=== PATIENT | male | born 1990 | race Hispanic/Latino ===

== ENCOUNTER 2018-10-18 11:46 | Emergency (ER) | payer SELFPAY ==
--- OUTSIDE RECORDS SUMMARY | 2018-10-18 11:51 | XMS REPORT | Continuity of Care Document ---
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 [facility] HEMATOLOGY WBC 8.5 K/CMM 3.7 - 10.4 09/07 [facility] HEMATOLOGY Monocytes # 0.9 K/CMM 0.0 - 0.8 09/07 [facility] HEMATOLOGY Basophils # 0.1 K/CMM 0.0 - 0.2 09/07 [facility] HEMATOLOGY Microcyte 1+ None Seen 09/07 [facility] *ABN* (09/07/14 2:39 PM) HEMATOLOGY Segs 65.0 % 45.0 - 09/07 75.0 /2013 [facility] HEMATOLOGY Eosinophils 0.3 % 0.0 - 4.0 09/07 [facility] HEMATOLOGY Monocytes 10.2 % 2.0 - 12.0 09/07 [facility] HEMATOLOGY Lymphocytes 23.9 % 20.0 - 09/07 40.0 [facility] HEMATOLOGY Basophils 0.6 % 0.0 - 1.0 09/07 [facility] HEMATOLOGY Segs-Bands # 5.5 K/CMM 1.5 - 8.1 09/07 [facility] HEMATOLOGY Lymphocytes 2.0 K/CMM 1.0 - 5.5 09/07 [facility] Chest Chest 1view NAME: DAVE GRIER 09/07 - - [facility] : 1990 SEX: M Ordering Physician: Sunny Vaz Read by: Sawyer Jacobs MD Dictated Date/time: 09/07/14 15:46 Chest 1view : Sep 07, 2014 03:41:00 PM. Electronically Signed by: Sawyer Jacobs MD 09/07/14 15:46 FINAL REPORT CLINICAL INDICATION: Chest pain / See Clinic Indication Comparison Examination: None. FINDINGS: The portable AP chest radiograph is provided for review. There are mild decreased lung volumes without interstitial opacities, pleural effusions or pneumothorax. The heart size and pulmonary vasculature are normal. The trachea is midline. Mediastinal contour is unremarkable. There are no clinically significant osseous abnormalities noted. IMPRESSION: 1. No acute cardiopulmonary disease. SL: 23 Vital Signs Vital Sign Value Date Comments Source Temperature Oral (F) 98.4 F 06/28/2017 [facility] Heart Rate 82 06/28/2017 [facility] Systolic (mm Hg) 142 06/28/2017 [facility] Diastolic (mm Hg) 79 06/28/2017 [facility] Respitory Rate 20 06/28/2017 [facility] Weight 100 06/28/2017 [facility] Height 172.72 cm 06/28/2017 [facility] BMI Calculated 33.52 06/28/2017 [facility] Respitory Rate 20 06/28/2017 [facility] Heart Rate 89 06/28/2017 [facility] Systolic (mm Hg) 152 06/28/2017 [facility] Diastolic (mm Hg) 90 06/28/2017 [facility] Temperature Oral (F) 98.7 F 06/28/2017 [facility] Heart Rate 96 06/28/2017 [facility] Respitory Rate 24 06/28/2017 [facility] Systolic (mm Hg) 144 06/28/2017 [facility] Diastolic (mm Hg) 82 06/28/2017 [facility] Temperature Oral (F) 99.4 F 06/28/2017 [facility] BMI Calculated 33.52 06/28/2017 [facility] Height 172.72 cm 06/28/2017 [facility] Weight 100 06/28/2017 [facility] Respitory Rate 18 06/21/2017 [facility] Systolic (mm Hg) 159 06/21/2017 [facility] Diastolic (mm Hg) 91 06/21/2017 [facility] Heart Rate 87 06/21/2017 [facility] Temperature Oral (F) 98.7 F 06/21/2017 [facility] Respitory Rate 18 06/21/2017 [facility] Systolic (mm Hg) 165 06/21/2017 [facility] Diastolic (mm Hg) 98 06/21/2017 [facility] Temperature Oral (F) 98.4 F 06/21/2017 [facility] Heart Rate 91 06/21/2017 [facility] Systolic (mm Hg) 165 06/21/2017 [facility] Diastolic (mm Hg) 91 06/21/2017 [facility] Temperature Oral (F) 98.5 F 06/21/2017 [facility] Respitory Rate 20 06/21/2017 [facility] Heart Rate 76 06/21/2017 [facility] Height 172.72 cm 06/19/2017 [facility] BMI Calculated 33.52 06/19/2017 [facility] Weight 100 06/19/2017 [facility] BMI Calculated 33.52 06/18/2017 [facility] Weight 100 06/18/2017 [facility] Height 172.72 cm 06/18/2017 [facility] Weight 100 06/18/2017 [facility] Temperature Oral (F) 98.8 F 09/11/2016 [facility] Heart Rate 76 09/11/2016 [facility] Systolic (mm Hg) 142 09/11/2016 [facility] Diastolic (mm Hg) 87 09/11/2016 [facility] Respitory Rate 18 09/11/2016 [facility] Heart Rate 70 09/11/2016 [facility] Respitory Rate 20 09/11/2016 [facility] Systolic (mm Hg) 154 09/11/2016 [facility] Diastolic (mm Hg) 84 09/11/2016 [facility] Respitory Rate 19 09/11/2016 [facility] Heart Rate 84 09/11/2016 [facility] Systolic (mm Hg) 144 09/11/2016 [facility] Diastolic (mm Hg) 90 09/11/2016 [facility] Weight 106.818 09/11/2016 [facility] Temperature Oral (F) 99.0 F 09/11/2016 [facility] Systolic (mm Hg) 180 07/07/2016 [facility] Diastolic (mm Hg) 99 07/07/2016 [facility] Height 172.72 cm 07/07/2016 [facility] Heart Rate 95 07/07/2016 [facility] Respitory Rate 18 07/07/2016 [facility] Temperature Oral (F) 98.1 F 07/07/2016 [facility] BMI Calculated 35.81 07/07/2016 [facility] Weight 106.818 07/07/2016 [facility] Heart Rate 86 05/25/2016 [facility] Temperature Oral (F) 98.4 F 05/25/2016 [facility] Systolic (mm Hg) 148 05/25/2016 [facility] Diastolic (mm Hg) 92 05/25/2016 [facility] Respitory Rate 16 05/25/2016 [facility] Weight 106.818 05/25/2016 [facility] Temperature Oral (F) 98.6 F 05/25/2016 [facility] Respitory Rate 18 05/25/2016 [facility] Systolic (mm Hg) 140 05/25/2016 [facility] Diastolic (mm Hg) 85 05/25/2016 [facility] Heart Rate 101 05/25/2016 [facility] Systolic (mm Hg) 128 09/07/2014 [facility] Temperature Oral (F) 98.2 F 09/07/2014 [facility] Heart Rate 88 09/07/2014 [facility] Respitory Rate 18 09/07/2014 [facility] Diastolic (mm Hg) 78 09/07/2014 [facility] Height 172.72 cm 09/07/2014 [facility] Weight 91.477 09/07/2014 [facility] BMI Calculated 30.66 09/07/2014 [facility] Diastolic (mm Hg) 94 09/07/2014 [facility] Systolic (mm Hg) 152 09/07/2014 [facility] Respitory Rate 20 09/07/2014 [facility] Heart Rate 94 09/07/2014 [facility] Temperature Oral (F) 98.4 F 09/07/2014 [facility] Encounters Location Location Encounter Encounter Reason Attending ADM DC Status Source Details Type Number For Provider Date Date Visit [facility] Emergency [id number] Christopher 09/07 09/07 [facility] 0 Milind [facility] Emergency [id number] Kandace 05/25 05/25 [facility] 1 Siever /2015 [facility] Emergency [id number] Silvano 07/07 07/07 [facility] 2 [facility] /2015 [facility] Emergency [id number] Yaw Faig 09/11 09/11 [facility] 3 [facility] Inpatient [id number] Lenny 06/18 06/21 [facility] 4 Lambert /2016 [facility] Observation [id number] Rondel 06/28 06/28 Hasmukh 5 Zak /2016 [facility] Procedures Procedure Code Date Perfomer Comments Source Exploration of [id number] [facility] abdomen
--- OUTSIDE RECORDS SUMMARY | 2018-10-18 11:52 | XMS REPORT | Summary of Care ---
:1990 Author Organization [facility] Address [address] [place] [address]- Encounter HQ Sarah(ELVIRA) [id number] Date(s): 09/10/16 - 09/10/[address] [address]- Discharge Diagnosis: Abdominal pain Discharge Diagnosis: GI bleed Discharge Disposition: Home or Self Care Attending Physician: Yaw Holley MD Vital Signs Most recent to oldest 1 2 3 [Reference Range]: Temperature Oral [96.4-99.1 98.8 DegF 99.0 DegF DegF] (09/10/16 10:20 PM) (09/10/16 7:32 PM) Blood Pressure [90-140/60-90 142/87 mmHg 154/84 mmHg 144/90 mmHg mmHg] *HI* *HI* *HI* (09/10/16 10:20 PM) (09/10/16 9:19 PM) (09/10/16 8:08 PM) Respiratory Rate [14-20 BRMIN] 18 BRMIN 20 BRMIN 19 BRMIN (09/10/16 10:20 PM) (09/10/16 9:19 PM) (09/10/16 8:08 PM) Peripheral Pulse Rate [60-100 76 bpm 70 bpm 84 bpm bpm] (09/10/16 10:20 PM) (09/10/16 9:19 PM) (09/10/16 8:08 PM) Weight 106.818 kg (09/10/16 7:32 PM) Problem List Condition Effective Dates Status Health Status Informant Anxiety(Confirmed) Resolved Ulcerative colitis(Confirmed) Resolved Allergies, Adverse Reactions, Alerts Substance Reaction Severity Status NKDA Active Medications Bentyl 20 mg oral tablet 20 mg=1 tab, PO, QID-Before Meals, # 28 tab, 0 Refill(s) Start Date: 09/10/16 Stop Date: 09/17/16 Status: Orderedmorphine Sulfate 8 mg, Route: IVP, ONCE, Dosing Weight 106.818, kg, Priority: STAT, Start date: 09/10/16 22:14:00 [employer], Stop date: 09/10/16 22:14:00 [employer] Start Date: 09/10/16 Stop Date: 09/10/16 Status: Completedmorphine Sulfate 4 mg, 1 mL, Route: IVP, Drug form: INJ, ONCE, Dosing Weight 106.818, kg, Priority: STAT, Start date:09/10/16 19:52:00 [employer], Stop date: 09/10/16 19:52:00 [employer] Notes: (Same as:MORPhine Sulfate) Start Date: 09/10/16 Stop Date: 09/10/16 Status: Completedondansetron 4 mg, 2 mL, Route: IVP, Drug form: INJ, ONCE, Dosing Weight 106.818, kg, Priority: STAT, Start date:09/10/16 19:52:00 [employer], Stop date: 09/10/16 19:52:00 [employer] Notes: (Same as: Alda) MEDICATION WASTE Product Size: 4 mgProduct Wasted: ___ mg Start Date: 09/10/16 Stop Date: 09/10/16 Status: CompletedSaline Flush 0.9% 10 mL, Route: IVP, Drug Form: INJ, Dosing Weight 106.818, kg, PRN, PRN Line Flush, Start date: 09/10/16 19:52:00 [employer], Duration: 30 day, Stop date: 10/10/16 19:51:00 [employer] Notes: (Same as: BD Posiflush) Start Date: 09/10/16 Stop Date: 09/10/16 Status: DiscontinuedSodium Chloride 0.9% (Bolus) IV 1,000 mL, 2,000 ml/hr, Infuse Over: 30 minutes, Route: IV, 1,000, Drug form: INJ , ONCE, Priority: STAT, Dosing Weight 106.818 kg, Start date: 09/10/16 19:52:00 [employer], Duration: 1 doses or times, Stop date: 09/10/16 19:52:00 [employer] Start Date: 09/10/16 Stop Date: 09/10/16 Status: Completedtramadol 50 mg oral tablet 50 mg=1 tab, PO, Q6H, PRN Pain, X 10 day, # 40 tab, 0 Refill(s) Start Date: 09/10/16 Stop Date: 09/20/16 Status: OrderedZofran ODT 4 mg oral tablet, disintegrating 4 mg=1 tab, PO, BID, PRN Nausea and Vomiting, Dissolve tab under tongue, X 5 day , # 10 tab, 0 Refill(s) Start Date: 09/10/16 Stop Date: 09/15/16 Status: Ordered Results ELECTROLYTES Most recent to oldest [Reference Range]: 1 Sodium Lvl [135-145 mEq/L] 142 mEq/L (09/10/16 8:48 PM) Potassium Lvl [3.5-5.1 mEq/L] 3.9 mEq/L (09/10/16 8:48 PM) Chloride Lvl [95-109 mEq/L] 108 mEq/L (09/10/16 8:48 PM) CO2 [24-32 mEq/L] 29 mEq/L (09/10/16 8:48 PM) AGAP [10.0-20.0 mEq/L] 8.9 mEq/L *LOW* (09/10/16 8:48 PM) CHEM PANEL Most recent to oldest [Reference Range]: 1 Creatinine Lvl [0.50-1.40 mg/dL] 0.85 mg/dL (09/10/16 8:48 PM) eGFR 120 mL/min/1.73m2 1 *NA* (09/10/16 8:48 PM) BUN [7-22 mg/dL] 9 mg/dL (09/10/16 8:48 PM) B/C Ratio [6-25] 11 (09/10/16 8:48 PM) Glucose Lvl [70-99 mg/dL] 79 mg/dL (09/10/16 8:48 PM) Total Protein [6.4-8.4 g/dL] 6.7 g/dL (09/10/16 8:48 PM) Albumin Lvl [3.5-5.0 g/dL] 3.6 g/dL (09/10/16 8:48 PM) Globulin [2.7-4.2 g/dL] 3.1 g/dL (09/10/16 8:48 PM) A/G Ratio [0.7-1.6] 1.2 (09/10/16 8:48 PM) Calcium Lvl [8.5-10.5 mg/dL] 8.2 mg/dL *LOW* (09/10/16 8:48 PM) ALT [0-65 unit/L] 26 unit/L (09/10/16 8:48 PM) AST [0-37 unit/L] 12 unit/L (09/10/16 8:48 PM) Alk Phos [39-136 unit/L] 75 unit/L (09/10/16 8:48 PM) Bili Total [0.2-1.3 mg/dL] 0.2 mg/dL (09/10/16 8:48 PM) Amylase Lvl [25-115 unit/L] 34 unit/L (09/10/16 8:48 PM) Lipase Lvl [73-393 unit/L] 50 unit/L *LOW* (09/10/16 8:48 PM) 1Result Comment: The eGFR is calculated using the CKD-EPI formula. In most young , healthy individualsthe eGFR will be >90 mL/min/1.73m2. The eGFR declines with age. An eGFR of 60-89 may be normal in some populations, particularly the elderly, for whom the CKD-EPI formula has not been extensively validated. Use of the eGFR is not recommended in the following populations: Individuals with unstable creatinine concentrations, including patients and those with serious co-morbid conditions. Patients with extremes in muscle mass or diet. The data above are obtained from the National Kid[employer] Education Program ( NKDEP) which additionally recommends that when the eGFR is used in patients with extremes of body mass index for purposesof drug dosing, the eGFR should be multiplied by the estimated BMI.HEMATOLOGY Most recent to oldest [Reference Range]: 1 WBC [3.7-10.4 K/CMM] 13.1 K/CMM *HI* (09/10/16 8:07 PM) RBC [4.70-6.10 M/CMM] 4.92 M/CMM (09/10/16 8:07 PM) Hgb [14.0-18.0 g/dL] 13.5 g/dL *LOW* (09/10/16 8:07 PM) Hct [42.0-54.0 %] 41.1 % *LOW* (09/10/16 8:07 PM) MCV [80.0-94.0 fL] 83.5 fL (09/10/16 8:07 PM) MCH [27.0-31.0 pg] 27.5 pg (09/10/16 8:07 PM) MCHC [32.0-36.0 g/dL] 32.9 g/dL (09/10/16 8:07 PM) RDW [11.5-14.5 %] 15.0 % *HI* (09/10/16 8:07 PM) Platelet [133-450 K/CMM] 225 K/CMM (09/10/16 8:07 PM) MPV [7.4-10.4 fL] 8.5 fL (09/10/16 8:07 PM) Segs [45.0-75.0 %] 70.6 % (09/10/16 8:07 PM) Lymphocytes [20.0-40.0 %] 23.8 % (09/10/16 8:07 PM) Monocytes [2.0-12.0 %] 4.7 % (09/10/16 8:07 PM) Eosinophils [0.0-4.0 %] 0.6 % (09/10/16 8:07 PM) Basophils [0.0-1.0 %] 0.3 % (09/10/16 8:07 PM) Segs-Bands # [1.5-8.1 K/CMM] 9.2 K/CMM *HI* (09/10/16 8:07 PM) Lymphocytes # [1.0-5.5 K/CMM] 3.1 K/CMM (09/10/16 8:07 PM) Monocytes # [0.0-0.8 K/CMM] 0.6 K/CMM (09/10/16 8:07 PM) Eosinophils # [0.0-0.5 K/CMM] 0.1 K/CMM (09/10/16 8:07 PM) Basophils # [0.0-0.2 K/CMM] 0.0 K/CMM (09/10/16 8:07 PM) Immunizations Given and Recorded Vaccine Date Status Refusal Reason diphtheria/pertussis, acel/tetanus adult 07/06/16 Given Procedures No data available for this section Social History Social History Type Response Substance Abuse Use: None. Alcohol Never Smoking Status Never smoker; Ready to change: No; Concerns about tobacco use in household: No; Exposure to Tobacco Smoke None; Cigarette Smoking Last 365 Days No; Reg Smoking Cessation Counseling No Assessment and Plan No data available for this section
--- OUTSIDE RECORDS SUMMARY | 2018-10-18 11:52 | XMS REPORT | Summary of Care ---
:1990 Author Organization [facility] Address [address] [place] [address]- Encounter HQ Jas_marcin(FIN) [id number] Date(s): 07/06/16 - 07/06/[address] [address]- Discharge Diagnosis: Closed head injury without loss of consciousness Discharge Diagnosis: Laceration of skin of forehead without complication Discharge Disposition: Home or Self Care Attending Physician: Silvano Hopkins MD Vital Signs Most recent to oldest [Reference Range]: 1 Height 172.72 cm (07/06/16 9:44 PM) Temperature Oral [96.4-99.1 DegF] 98.1 DegF (07/06/16 9:44 PM) Blood Pressure [90-140/60-90 mmHg] 180/99 mmHg *HI* (07/06/16 9:44 PM) Respiratory Rate [14-20 BRMIN] 18 BRMIN (07/06/16 9:44 PM) Peripheral Pulse Rate [60-100 bpm] 95 bpm (07/06/16 9:44 PM) Weight 106.818 kg (07/06/16 9:44 PM) Body Mass Index 35.81 m2 (07/06/16 9:44 PM) Problem List Condition Effective Dates Status Health Status Informant Anxiety(Confirmed) Resolved Ulcerative colitis(Confirmed) Resolved Allergies, Adverse Reactions, Alerts Substance Reaction Severity Status NKDA Active Medications No data available for this section Results No data available for this section Immunizations Given and Recorded Vaccine Date Status Refusal Reason diphtheria/pertussis, acel/tetanus adult 07/06/16 Given Procedures No data available for this section Social History Social History Type Response Substance Abuse Use: None. Alcohol Never Smoking Status Never smoker; Exposure to Tobacco Smoke None; Cigarette Smoking Last 365 Days No; Reg Smoking Cessation Counseling No Assessment and Plan No data available for this section
--- OUTSIDE RECORDS SUMMARY | 2018-10-18 11:52 | XMS REPORT | Summary of Care ---
:1990 Author Encounter CORTNEY Smith(ELVIRA) [id number] Date(s): 09/07/14 - 09/07/14 [facility] [id number] [place] [address] Discharge Diagnosis: Chest pain, atypical Discharge Disposition: Home Physician Attending: Sunny Vaz MD Reason for Visit CHEST PAIN Vital Signs Most recent to oldest [Reference Range]: 1 2 Height 172.72 cm (09/07/14 12:54 PM) Temperature Oral [96.4-99.1 DegF] 98.2 DegF 98.4 DegF (09/07/14 4:05 PM) (09/07/14 12:54 PM) Systolic Blood Pressure [90-140 mmHg] 128 mmHg 152 mmHg (09/07/14 4:05 PM) *HI* (09/07/14 12:54 PM) Diastolic Blood Pressure [60-90 mmHg] 78 mmHg 94 mmHg (09/07/14 4:05 PM) *HI* (09/07/14 12:54 PM) Respiratory Rate [14-20 BRMIN] 18 BRMIN 20 BRMIN (09/07/14 4:05 PM) (09/07/14 12:54 PM) Peripheral Pulse Rate [60-100 bpm] 88 bpm 94 bpm (09/07/14 4:05 PM) (09/07/14 12:54 PM) Weight 91.477 kg (09/07/14 12:54 PM) Body Mass Index 30.66 m2 (09/07/14 12:54 PM) Problem List Condition Effective Dates Status Health Status Informant Anxiety(Confirmed) Resolved Ulcerative colitis(Confirmed) Resolved Allergies, Adverse Reactions, Alerts Substance Reaction Severity Status NKDA Active Medications ketorolac 15 mg, 0.5 mL, Route: IVP, Drug form: INJ, ONCE, Dosing Weight 91.477, kg, Priority: STAT, Start date: 09/07/14 14:50:00, Stop date: 09/07/14 14:50:00 Notes: (Same as:Toradol) IV bolus must be given >15 seconds. Give IM administration slowly and deeply into the muscle. Not for use > 4 days Start Date: 09/07/14 Stop Date: 09/07/14 Status: CompletedNexIUM 40 mg oral delayed release capsule 40 mg=1 cap, PO, Daily, # 30 cap, 0 Refill(s) Start Date: 09/07/14 Status: OrderedSaline Flush 0.9% 10 mL, Route: IVP, Drug Form: INJ, Dosing Weight 91.477, kg, PRN, PRN Line Flush , Start date: 09/07/14 14:21:00, Duration: 30 day, Stop date: 10/07/14 14:20:00 Notes: (Same as: BD Posiflush) Start Date: 09/07/14 Stop Date: 09/07/14 Status: Discontinued Results ELECTROLYTES Most recent to oldest [Reference Range]: 1 Sodium Lvl [135-145 mEq/L] 139 mEq/L (09/07/14 2:39 PM) Potassium Lvl [3.5-5.1 mEq/L] 4.3 mEq/L (09/07/14 2:39 PM) Chloride Lvl [95-109 mEq/L] 107 mEq/L (09/07/14 2:39 PM) CO2 [24-32 mEq/L] 29 mEq/L (09/07/14 2:39 PM) AGAP [10.0-20.0 mEq/L] 7.3 mEq/L *LOW* (09/07/14 2:39 PM) CHEM PANEL Most recent to oldest [Reference Range]: 1 Creatinine Lvl [0.5-1.4 mg/dL] 0.8 mg/dL (09/07/14 2:39 PM) eGFR 124 mL/min/1.73m2 1 *NA* (09/07/14 2:39 PM) BUN [7-22 mg/dL] 13 mg/dL (09/07/14 2:39 PM) B/C Ratio [6-25] 16 (09/07/14 2:39 PM) Glucose Lvl [70-99 mg/dL] 86 mg/dL 2 (09/07/14 2:39 PM) Total Protein [6.4-8.4 g/dL] 8.1 g/dL (09/07/14 2:39 PM) Albumin Lvl [3.5-5.0 g/dL] 4.1 g/dL (09/07/14 2:39 PM) Globulin [2.0-4.0 g/dL] 4.0 g/dL (09/07/14 2:39 PM) A/G Ratio [0.7-1.6] 1.0 (09/07/14 2:39 PM) Calcium Lvl [8.5-10.5 mg/dL] 9.0 mg/dL (09/07/14 2:39 PM) ALT [0-65 unit/L] 29 unit/L (09/07/14 2:39 PM) AST [0-37 unit/L] 16 unit/L (09/07/14 2:39 PM) Alk Phos [39-136 unit/L] 85 unit/L (09/07/14 2:39 PM) Bili Total [0.2-1.3 mg/dL] 0.3 mg/dL (09/07/14 2:39 PM) 1Result Comment: The eGFR is calculated [...] eGFR should be multiplied by the estimated BMI.2Interpretive Data: Adult reference range values reflect the clinical guidelines of the [employer].CARDIAC ENZYMES Most recent to oldest [Reference Range]: 1 Total CK [12-191 unit/L] 62 unit/L (09/07/14 2:39 PM) CK MB [0.5-3.6 ng/mL] <0.5 ng/mL (09/07/14 2:39 PM) CK MB Index [0.0-2.5] <0.8 (09/07/14 2:39 PM) Troponin-I [0.00-0.40 ng/mL] <0.02 ng/mL (09/07/14 2:39 PM) BNP [<=100 pg/mL] 9 pg/mL 3 (09/07/14 2:39 PM) 3Interpretive Data: Elevated results are in line with increasing severity of congestive heart failure. Minor elevations between 100 and 300 may be seen with Myocardial Ischemia, Sodium retaining drugs, and compensated/treated heart failure.HEMATOLOGY Most recent to oldest [Reference Range]: 1 WBC [3.7-10.4 K/CMM] 8.5 K/CMM (09/07/14 2:39 PM) RBC [4.70-6.10 M/CMM] 5.19 M/CMM (09/07/14 2:39 PM) Hgb [14.0-18.0 g/dL] 13.8 g/dL *LOW* (09/07/14 2:39 PM) Hct [42.0-54.0 %] 40.7 % *LOW* (09/07/14 2:39 PM) MCV [80.0-94.0 fL] 78.5 fL *LOW* (09/07/14 2:39 PM) MCH [27.0-31.0 pg] 26.5 pg *LOW* (09/07/14 2:39 PM) MCHC [32.0-36.0 g/dL] 33.8 g/dL (09/07/14 2:39 PM) RDW [11.5-14.5 %] 16.1 % *HI* (09/07/14 2:39 PM) Platelet [133-450 K/CMM] 254 K/CMM (09/07/14 2:39 PM) MPV [7.4-10.4 fL] 8.6 fL (09/07/14 2:39 PM) Segs [45.0-75.0 %] 65.0 % (09/07/14 2:39 PM) Lymphocytes [20.0-40.0 %] 23.9 % (09/07/14 2:39 PM) Monocytes [2.0-12.0 %] 10.2 % (09/07/14 2:39 PM) Eosinophils [0.0-4.0 %] 0.3 % (09/07/14 2:39 PM) Basophils [0.0-1.0 %] 0.6 % (09/07/14 2:39 PM) Segs-Bands # [1.5-8.1 K/CMM] 5.5 K/CMM (09/07/14 2:39 PM) Lymphocytes # [1.0-5.5 K/CMM] 2.0 K/CMM (09/07/14 2:39 PM) Monocytes # [0.0-0.8 K/CMM] 0.9 K/CMM *HI* (09/07/14 2:39 PM) Basophils # [0.0-0.2 K/CMM] 0.1 K/CMM (09/07/14 2:39 PM) Micro[employer]te [None Seen] 1+ *ABN* (09/07/14 2:39 PM) PT [12.0-14.7 seconds] 13.4 seconds (09/07/14 2:39 PM) INR [0.85-1.17] 1.02 4 (09/07/14 2:39 PM) PTT [22.9-35.8 seconds] 38.6 seconds 5 *HI* (09/07/14 2:39 PM) 4Interpretive Data: RECOMMENDED RANGES FOR PROTIME INR: 2.0-3.0 for most medical and surgical thromboembolic states. 2.5-3.5 for artificial heart valves and recurrent embolism. INR SHOULD BE USED ONLY FOR PATIENTS ON STABLE ANTICOAGULANT THERAPY.5Interpretive Data: Heparin Therapeutic Range: 57 - 92 Seconds Medications Administered During Your Visit No data available for this section Immunizations No data available for this section
--- OUTSIDE RECORDS SUMMARY | 2018-10-18 11:52 | XMS REPORT | Summary of Care ---
:1990 Author Organization [facility] Address [address] [place] [id number]- Encounter HQ Sarah(FIN) [id number] Date(s): 05/24/16 - 05/25/[address] [address]- Discharge Diagnosis: Ankle cellulitis Discharge Disposition: Home or Self Care Attending Physician: Kandace Monae MD Vital Signs Most recent to oldest [Reference Range]: 1 2 Temperature Oral [96.4-99.1 DegF] 98.4 DegF 98.6 DegF (05/25/16 2:44 AM) (05/24/16 10:45 PM) Blood Pressure [90-140/60-90 mmHg] 148/92 mmHg 140/85 mmHg *HI* (05/24/16 10:45 PM) (05/25/16 2:44 AM) Respiratory Rate [14-20 BRMIN] 16 BRMIN 18 BRMIN (05/25/16 2:44 AM) (05/24/16 10:45 PM) Peripheral Pulse Rate [60-100 bpm] 86 bpm 101 bpm (05/25/16 2:44 AM) *HI* (05/24/16 10:45 PM) Weight 106.818 kg (05/24/16 10:45 PM) Problem List Condition Effective Dates Status Health Status Informant Anxiety(Confirmed) Resolved Ulcerative colitis(Confirmed) Resolved Allergies, Adverse Reactions, Alerts Substance Reaction Severity Status NKDA Active Medications Bactrim DS 800 mg- 160 mg oral tablet 1 tab, PO, BID, X 7 day, # 14 tab, 0 Refill(s) Start Date: 05/25/16 Stop Date: 06/01/16 Status: OrderedBactrim DS 800 mg- 160 mg oral tablet 1 tab, Route: PO, Drug Form: TAB, Dosing Weight 106.818, kg, ONCE, Start date: 05/25/16 2:08:00 CDT,Stop date: 05/25/16 2:08:00 CDT Notes: One DS tablet=trimethoprim 160mg + sulfamethoxazole 800 mgDose based on trimethoprim component On empty stomach with a glass of water. 1 hr before meals (Same As: Bactrim DS, Septra DS) Start Date: 05/25/16 Stop Date: 05/25/16 Status: CompletedKeflex 500 mg, 1 cap, Route: PO, Drug form: CAP, ONCE, Dosing Weight 106.818, kg, Priority: STAT, Start date: 05/25/16 2:08:00 CDT, Stop date: 05/25/16 2:08:00 CDT Notes: Take on empty stomach. (Same As: Keflex) Start Date: 05/25/16 Stop Date: 05/25/16 Status: CompletedKeflex 500 mg oral capsule 500 mg=1 cap, PO, QID, X 7 day, # 28 cap, 0 Refill(s) Start Date: 05/25/16 Stop Date: 06/01/16 Status: Orderedlisinopril 20 mg oral tablet 20 mg=1 tab, PO, Daily, # 30 tab, 0 Refill(s) Start Date: 05/25/16 Status: Ordered Results No data available for this section Immunizations No data available for this section Procedures No data available for this section Social History Social History Type Response Substance Abuse Use: None. Alcohol Never Smoking Status Never smoker; Exposure to Tobacco Smoke None; Cigarette Smoking Last 365 Days No; Reg Smoking Cessation Counseling No Assessment and Plan No data available for this section
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
--- OUTSIDE RECORDS SUMMARY | 2018-10-18 11:53 | XMS REPORT | Summary of Care ---
:1990 Author Organization [facility] Address [address] [place] [id number]- Encounter HQ Sarah(FIN) [id number] Date(s): 06/18/17 - 06/21/[address] [address]- Discharge Disposition: Home or Self Care Attending Physician: Lenny Singer MD Admitting Physician: Lenny Singer MD Vital Signs Most recent to oldest 1 2 3 [Reference Range]: Height 172.72 cm 172.72 cm (06/19/17 9:00 AM) (06/18/17 11:29 AM) Temperature Oral [96.4-99.1 98.7 DegF 98.4 DegF 98.5 DegF DegF] (06/21/17 11:49 AM) (06/21/17 7:27 AM) (06/20/17 11:33 PM) Blood Pressure [90-140/60-90 159/91 mmHg 165/98 mmHg 165/91 mmHg mmHg] *HI* *HI* *HI* (06/21/17 11:49 AM) (06/21/17 7:27 AM) (06/20/17 11:33 PM) Respiratory Rate [14-20 18 BRMIN 18 BRMIN 20 BRMIN BRMIN] (06/21/17 11:49 AM) (06/21/17 7:27 AM) (06/20/17 11:33 PM) Peripheral Pulse Rate 87 bpm 91 bpm 76 bpm [60-100 bpm] (06/21/17 11:49 AM) (06/21/17 7:27 AM) (06/20/17 11:33 PM) Weight 100 kg 100 kg 100 kg (06/19/17 9:00 AM) (06/18/17 11:29 AM) (06/18/17 1:20 AM) Body Mass Index 33.52 m2 33.52 m2 (06/19/17 9:00 AM) (06/18/17 11:29 AM) Problem List Condition Effective Dates Status Health Status Informant Anxiety(Confirmed) Resolved Ulcerative colitis(Confirmed) Resolved Allergies, Adverse Reactions, Alerts Substance Reaction Severity Status NKDA Active Medications Amidate (ANES) Route: IV, Drug form: INJ, ONCE, Stop date: 06/18/17 4:13:00 CDT Start Date: 06/18/17 Stop Date: 06/18/17 Status: CompletedANES acetaminophen 1,000 mg, Route: IV, ONCE, Dosing Weight 100, kg, PRN Pain Score 1-3, Start date : 06/18/17 4:00:00 CDT, Duration: 1 doses or times, Stop date: Limited # of times Start Date: 06/18/17 Stop Date: 06/18/17 Status: DiscontinuedANES dexamethasone 4 mg, Route: IVP, ONCE, Dosing Weight 100, kg, PRN Nausea & Vomiting, Start date: 06/18/17 4:00:00 CDT Start Date: 06/18/17 Stop Date: 06/18/17 Status: DiscontinuedANES dexamethasone 4 mg, 1 mL, Route: IVP, Drug form: INJ, ONCE, Dosing Weight 100, kg, PRN Nausea & Vomiting, Start date: 06/18/17 6:13:00 CDT Notes: Concentration: 4mg/ml Start Date: 06/18/17 Stop Date: 06/18/17 Status: DiscontinuedANES diphenhydrAMINE 12.5 mg, Route: IVP, Drug form: INJ, Q6H, Dosing Weight 100, kg, PRN Itching, Start date: 06/18/17 4:00:00 CDT, Duration: 30 day, Stop date: 07/18/17 3:59:00 CDT Start Date: 06/18/17 Stop Date: 06/18/17 Status: DiscontinuedANES diphenhydrAMINE 12.5 mg, 0.25 mL, Route: IVP, Drug form: INJ, Q6H, Dosing Weight 100, kg, PRN Itching, Start date: 06/18/17 6:13:00 CDT, Duration: 30 day, Stop date: 6:12:00 CDT Notes: (Same as: Benadryl) Start Date: 06/18/17 Stop Date: 06/18/17 Status: DiscontinuedANES fentaNYL 50 microgram, Route: IVP, Q5Min, Dosing Weight 100, kg, PRN Pain Score 7-10, Priority: Routine, Start date: 06/18/17 4:00:00 CDT, Duration: 2 doses or times , Stop date: Limited # of times Start Date: 06/18/17 Stop Date: 06/18/17 Status: DiscontinuedANES fentaNYL 50 microgram, 1 mL, Route: IVP, Drug form: INJ, Q5Min, Dosing Weight 100, kg, PRN Pain Score 7-10, Priority: Routine, Start date: 06/18/17 6:13:00 CDT, Duration: 2 doses or times, Stop date: Limited # of times Notes: (Same as: Sublimaze) Preservative free. Start Date: 06/18/17 Stop Date: 06/18/17 Status: CompletedANES flumazenil 0.2 mg, Route: IVP, PRN, Dosing Weight 100, kg, PRN Benzodiazepine Reversal, Initial dose, Start date: 06/18/17 4:00:00 CDT, Duration: 30 day, Stop date: 3:59:00 CDT Start Date: 06/18/17 Stop Date: 06/18/17 Status: DiscontinuedANES flumazenil 0.2 mg, 2 mL, Route: IVP, Drug form: INJ, PRN, Dosing Weight 100, kg, PRN Benzodiazepine Reversal, Initial dose, Start date: 06/18/17 6:13:00 CDT, Duration: 30 day, Stop date: 07/18/17 6:12:00 CDT Notes: (Same as: Romazicon) Start Date: 06/18/17 Stop Date: 06/18/17 Status: DiscontinuedANES hydrALAZINE 10 mg, Route: IVP, Q20Min, Dosing Weight 100, kg, PRN Elevated BP, Start date: 06/18/17 4:00:00 CDT,Duration: 2 doses or times, Stop date: Limited # of times Start Date: 06/18/17 Stop Date: 06/18/17 Status: DiscontinuedANES hydrALAZINE 10 mg, 0.5 mL, Route: IVP, Drug form: INJ, Q20Min, Dosing Weight 100, kg, PRN Elevated BP, Start date: 06/18/17 6:13:00 CDT, Duration: 2 doses or times, Stop date: Limited # of times Notes: (Same as: Apresoline)Push over 5 minutes Start Date: 06/18/17 Stop Date: 06/18/17 Status: DiscontinuedANES HYDROmorphone 0.5 mg, Route: IVP, Q5Min, Dosing Weight 100, kg, PRN Pain Score 7-10, Start date: 06/18/17 4:00:00 CDT, Duration: 4 doses or times, Stop date: Limited # of times Start Date: 06/18/17 Stop Date: 06/18/17 Status: DiscontinuedANES HYDROmorphone 0.5 mg, 0.5 mL, Route: IVP, Drug form: INJ, Q5Min, Dosing Weight 100, kg, PRN Pain Score 7-10, Startdate: 06/18/17 6:13:00 CDT, Duration: 4 doses or times, Stop date: Limited # of times Start Date: 06/18/17 Stop Date: 06/18/17 Status: DiscontinuedANES labetalol 10 mg, 2 mL, Route: IVP, Drug form: INJ, Q5Min, Dosing Weight 100, kg, PRN Elevated BP, Start date: 06/18/17 6:13:00 CDT, Duration: 5 doses or times, Stop date: Limited # of times Start Date: 06/18/17 Stop Date: 06/18/17 Status: DiscontinuedANES meperidine 12.5 mg, Route: IVP, Q30Min, Dosing Weight 100, kg, PRN Other -See Comment, For shivering, Start date: 06/18/17 4:00:00 CDT, Duration: 2 doses or times, Stop date: Limited # of times Start Date: 06/18/17 Stop Date: 06/18/17 Status: DiscontinuedANES meperidine 12.5 mg, 0.25 mL, Route: IVP, Drug form: INJ, Q30Min, Dosing Weight 100, kg, PRN Other -See Comment,For shivering, Start date: 06/18/17 6:13:00 CDT, Duration : 2 doses or times, Stop date: Limited # oftimes Notes: (Same As: Demerol) Start Date: 06/18/17 Stop Date: 06/18/17 Status: DiscontinuedANES morphine Sulfate 2 mg, Route: IVP, Q5Min, Dosing Weight 100, kg, PRN Pain Score 4-6, Start date: 06/18/17 4:00:00 CDT, Duration: 5 doses or times, Stop date: Limited # of times Start Date: 06/18/17 Stop Date: 06/18/17 Status: DiscontinuedANES morphine Sulfate 2 mg, 1 mL, Route: IVP, Drug form: INJ, Q5Min, Dosing Weight 100, kg, PRN Pain Score 4-6, Start date: 06/18/17 6:13:00 CDT, Duration: 5 doses or times, Stop date: Limited # of times Notes: (Same as:MORPhine Sulfate) Start Date: 06/18/17 Stop Date: 06/18/17 Status: DiscontinuedANES naloxone 0.4 mg, Route: IVP, Q2MIN, Dosing Weight 100, kg, PRN Narcotic Reversal, Start date: 06/18/17 4:00:00 CDT, Duration: 8 doses or times, Stop date: Limited # of times Start Date: 06/18/17 Stop Date: 06/18/17 Status: DiscontinuedANES naloxone 0.4 mg, 1 mL, Route: IVP, Drug form: INJ, Q2MIN, Dosing Weight 100, kg, PRN Narcotic Reversal, Startdate: 06/18/17 6:13:00 CDT, Duration: 8 doses or times, Stop date: Limited # of times Notes: Same as Narcan Start Date: 06/18/17 Stop Date: 06/18/17 Status: DiscontinuedANES ondansetron 4 mg, Route: IVP, ONCE, Dosing Weight 100, kg, PRN Nausea & Vomiting, Start date: 06/18/17 4:00:00 CDT Start Date: 06/18/17 Stop Date: 06/18/17 Status: DiscontinuedANES ondansetron 4 mg, 2 mL, Route: IVP, Drug form: INJ, ONCE, Dosing Weight 100, kg, PRN Nausea & Vomiting, Start date: 06/18/17 6:13:00 CDT Notes: (Same as: Zofran) MEDICATION WASTE Product Size: 4 mgProduct Wasted: ___ mg Start Date: 06/18/17 Stop Date: 06/18/17 Status: CompletedceFAZolin 2 gm, 100 mL, Route: IV, Drug form: INJ, ONCE, Dosing Weight 100, kg, (for patients 50 -120 kg), Priority: STAT, Start date: 06/18/17 1:27:00 CDT, Duration : 1 doses or times, Stop date: 06/18/17 1:27:00 CDT, ABX Indication: Open Wound Prophylaxis Notes: Same as: Ancef Start Date: 06/18/17 Stop Date: 06/18/17 Status: CompletedceFAZolin (ANES) Route: IV, Drug form: INJ, ONCE, Stop date: 06/18/17 4:08:00 CDT Start Date: 06/18/17 Stop Date: 06/18/17 Status: CompletedDilaudid 0.3 mg, 0.3 mL, Route: IVP, Drug form: INJ, Q3H, Dosing Weight 100, kg, PRN Pain Score 1-5, Priority: STAT, Start date: 06/19/17 21:24:00 CDT, Duration: 30 day, Stop date: 07/19/17 21:23:00 CDT, breakthrough pain Start Date: 06/19/17 Stop Date: 06/21/17 Status: DiscontinuedDulcolax Laxative 10 mg, 2 tab, Route: PO, Drug form: ECTAB, ONCE, Dosing Weight 100, kg, Start date: 06/20/17 8:51:00CDT, Stop date: 06/20/17 8:51:00 CDT Notes: (Same As: Dulcolax, Correctol) (Do Not Crush) "Do Not Crush" Start Date: 06/20/17 Stop Date: 06/20/17 Status: CompletedfentaNYL (ANES) Route: IV, Drug form: INJ, ONCE, Stop date: 06/18/17 4:03:00 CDT Start Date: 06/18/17 Stop Date: 06/18/17 Status: CompletedGastrografin 30 mL, Route: PO, Dosing Weight 100, kg, ONCE, Start date: 06/18/17 1:47:00 CDT , Stop date: 171:47:00 CDT Start Date: 06/18/17 Stop Date: 06/18/17 Status: Completedhydromorphone 1 mg, 1 mL, Route: IVP, Drug form: INJ, ONCE, Dosing Weight 100, kg, Priority: STAT, Start date: 06/18/17 11:29:00 CDT, Stop date: 06/18/17 11:29:00 CDT Start Date: 06/18/17 Stop Date: 06/18/17 Status: CompletedHYDROmorphone MEDICAL RECORD CODER 0.5mg/ml 30ml INJ 15 mg 15 mg, 30 mL, Route: IV, Initial Loading Dose: 0.5 mg, MEDICAL RECORD CODER Dose: 0.3 mg, MEDICAL RECORD CODER Lockout: 15 minutes, Continuous Basal Rate: 0 mg, 4 Hour Limit (In MG): 4.8, Drug Form: INJ, Continuous, Start date: 06/18/17 7:00:00 CDT, Duration: 30 day, Stop date: ... Notes: (Same as: Dilaudid) conc=0.5 mg/mlHydromorphone MEDICAL RECORD CODER Dose: ;Delay : ;Basal: Start Date: 06/18/17 Stop Date: 06/19/17 Status: Discontinuedibuprofen 400 mg oral tablet 800 mg=2 tab, PO, TID-Meals, not to exceed 3200 mg/day with food or milk, X 10 day, # 60 tab, 0 Refill(s) Start Date: 06/21/17 Stop Date: 07/01/17 Status: Orderedibuprofen 400 mg oral tablet 800 mg, 2 tab, Route: PO, Drug form: TAB, TID-Meals, Dosing Weight 100, kg, Start date: 06/20/17 8:00:00 CDT, Duration: 30 day, Stop date: 07/19/17 17:00: 00 CDT Notes: (Same as: Motrin)"Do Not Crush" Give with food. Start Date: 06/20/17 Stop Date: 06/21/17 Status: DiscontinuedIsolyte S (PH 7.4) 1000 mL (ANES) Route: IV, Total Volume: 1,000, Start date: 06/18/17 3:10:00 CDT, Stop date: 4:10:00 CDT Start Date: 06/18/17 Stop Date: 06/18/17 Status: CompletedLactated Ringers 1,000 mL 1,000 mL, Rate: 30 ml/hr, Infuse over: 33.3 hr, Route: IV, Dosing Weight 100 kg , Total Volume: 1,000, Start date: 06/18/17 6:17:00 CDT, Stop date: 07/18/17 6: 16:00 CDT Start Date: 06/18/17 Stop Date: 06/21/17 Status: Discontinuedlisinopril 20 mg, 1 tab, Route: PO, Drug form: TAB, Daily, Dosing Weight 100, kg, Start date: 06/20/17 17:00:00CDT, Duration: 30 day, Stop date: 07/20/17 9:00:00 CDT Notes: (Same as: Prinivil, Zestril) Start Date: 06/20/17 Stop Date: 06/21/17 Status: DiscontinuedmetroNIDAZOLE (ANES) Route: IV, Drug form: INJ, ONCE, Stop date: 06/18/17 4:13:00 CDT Start Date: 06/18/17 Stop Date: 06/18/17 Status: CompletedMilk of Magnesia 60 ml, Route: PO, Drug Form: SUSP, Dosing Weight 100, kg, ONCE, STAT, Start date : 06/20/17 8:46:00 CDT, Stop date: 06/20/17 8:46:00 CDT Notes: (Same as: Milk of Magnesia, MOM) Start Date: 06/20/17 Stop Date: 06/20/17 Status: Completedmorphine Sulfate 2 mg, 0.5 mL, Route: IVP, Drug form: INJ, ONCE, Dosing Weight 100, kg, Priority : STAT, Start date: 06/18/17 1:27:00 CDT, Stop date: 06/18/17 1:27:00 CDT Notes: (Same as:MORPhine Sulfate) Start Date: 06/18/17 Stop Date: 06/18/17 Status: Completedmorphine Sulfate 4 mg, Route: IVP, ONCE, Dosing Weight 100, kg, Priority: STAT, Start date: 06/18 2:38:00 CDT, Stop date: 06/18/17 2:38:00 CDT Start Date: 06/18/17 Stop Date: 06/18/17 Status: Completedmorphine Sulfate (ANES) Route: IV, Drug form: INJ, ONCE, Stop date: 06/18/17 5:53:00 CDT Start Date: 06/18/17 Stop Date: 06/18/17 Status: Completednaloxone 0.04 mg, 0.1 mL, Route: IVP, Drug form: INJ, Q2MIN, Dosing Weight 100, kg, PRN Narcotic Reversal, Start date: 06/18/17 6:33:00 CDT, Duration: 30 day, Stop date : 07/18/17 6:32:00 CDT Notes: Same as Narcan Start Date: 06/18/17 Stop Date: 06/19/17 Status: Discontinuednaloxone 400 microgram + sodium chloride 0.9% 1000 ml INJ 1, 000 mL 1,000 mL, Rate: 17 microgram/hr, Route: IV, Dosing Weight 100 kg, Total Volume: 1,001 mL, PRN itching, Start date: 06/18/17 6:13:00 CDT, Duration: 30 day, Stop date: 07/18/17 6:12:00 CDT Notes: Same as Narcan Start Date: 06/18/17 Stop Date: 06/18/17 Status: DiscontinuedNorco 10/325 oral tablet 1 tab, Route: PO, Drug Form: TAB, Dosing Weight 100, kg, Q6H, PRN Pain Score 6- 10, Start date: 06/19/17 21:18:00 CDT, Duration: 30 day, Stop date: 07/19/17 21: 17:00 CDT Notes: Do not exceed 4gm/day of acetaminophen. (Same as: Cartwright 325/10) Start Date: 06/19/17 Stop Date: 06/21/17 Status: DiscontinuedNorco 5/325 oral tablet See Instructions, 1-2 tab PO Q4-6H PRN pain Take with food., # 50 tab, 0 Refill (s) Start Date: 06/21/17 Stop Date: 06/29/17 Status: OrderedNorco 5/325 oral tablet 1 tab, Route: PO, Drug Form: TAB, Dosing Weight 100, kg, Q4H, PRN Pain Score 1-5 , Start date: 06/19/17 21:18:00 CDT, Duration: 30 day, Stop date: 07/19/17 21:17 :00 CDT Notes: (Same as: Cartwright 325/5) Do not exceed 4gm/day of acetaminophen. Start Date: 06/19/17 Stop Date: 06/21/17 Status: DiscontinuedOfirmev 1,000 mg, Route: IV, Drug form: INJ, ONCE, Dosing Weight 100, kg, PRN Pain Score 1-3, for > or=50 kg, Start date: 06/18/17 6:34:00 CDT Start Date: 06/18/17 Stop Date: 06/18/17 Status: Completedondansetron 4 mg, 2 mL, Route: IVP, Drug form: INJ, Q6H, Dosing Weight 100, kg, PRN Nausea & amp; Vomiting, Startdate: 06/18/17 6:17:00 CDT, Duration: 30 day, Stop date: 6:16:00 CDT Notes: (Same as: Alda) MEDICATION WASTE Product Size: 4 mgProduct Wasted: ___ mg Start Date: 06/18/17 Stop Date: 06/21/17 Status: Discontinuedondansetron 4 mg, 2 mL, Route: IVP, Drug form: INJ, ONCE, Dosing Weight 100, kg, Priority: STAT, Start date: 06/18/17 1:27:00 CDT, Stop date: 06/18/17 1:27:00 CDT Notes: (Same as: Alda) MEDICATION WASTE Product Size: 4 mgProduct Wasted: ___ mg Start Date: 06/18/17 Stop Date: 06/18/17 Status: Completedpantoprazole 40 mg, Route: IVP, Drug form: INJ, Before Dinner, Dosing Weight 100, kg, Start date: 06/18/17 16:30:00 CDT, Duration: 30 day, Stop date: 07/17/17 16:30:00 CDT Notes: For IV push reconstitute with 10 ml 0.9% sodium chloride and push over 2 minutes. (Same as: Protonix) Start Date: 06/18/17 Stop Date: 06/19/17 Status: Discontinuedpotassium chloride 10 mEq, 100 mL, Route: IVPB, Drug form: INJ, Q1H, Dosing Weight 100, kg, Total Dose=20 meq, Start date: 06/18/17 3:00:00 CDT, Duration: 2 doses or times, Stop date: 06/18/17 4:00:00 CDT, Peripheral Line Notes: Infuse at a rate of 10 mEq/hr.(Same as: KCL) Start Date: 06/18/17 Stop Date: 06/18/17 Status: Discontinuedrocuronium (ANES) Route: IV, Drug form: INJ, ONCE, Stop date: 06/18/17 4:03:00 CDT Start Date: 06/18/17 Stop Date: 06/18/17 Status: CompletedSaline Flush 0.9% 10 mL, Route: IVP, Drug Form: INJ, Dosing Weight 100, kg, PRN, PRN Line Flush, Start date: 06/18/17 1:27:00 CDT, Duration: 30 day, Stop date: 07/18/17 1:26:00 CDT Notes: (Same as: BD Posiflush) Start Date: 06/18/17 Stop Date: 06/18/17 Status: DiscontinuedSodium Chloride 0.9% (Bolus) IV 1,000 mL, 2,000 ml/hr, Infuse Over: 0.5 hr, Route: IV, 1,000, Drug form: INJ, ONCE, Priority: STAT, Dosing Weight 100 kg, Start date: 06/18/17 1:27:00 CDT, Duration: 1 doses or times, Stop date: 06/18/17 1:27:00 CDT Start Date: 06/18/17 Stop Date: 06/18/17 Status: Completedsuccinylcholine (ANES) Route: IV, Drug form: INJ, ONCE, Stop date: 06/18/17 4:08:00 CDT Start Date: 06/18/17 Stop Date: 06/18/17 Status: CompletedVasotec 1.25 mg, 1 mL, Route: IV, Drug form: INJ, Q6H, Dosing Weight 100, kg, PRN Elevated BP, Start date: 06/18/17 6:35:00 CDT, Stop date: 07/18/17 6:34:00 CDT, SBP greater than 160 Notes: (Same as: Vasotec-IV) Start Date: 06/18/17 Stop Date: 06/21/17 Status: DiscontinuedVisipaque 320 mg/mL injectable solution 100 mL, Route: IVP, Dosing Weight 100, kg, ONCALL, GFR 31 - 45 mL/min, STAT, Start date: 06/18/17 2:09:00 CDT, Duration: 1 doses or times Start Date: 06/18/17 Stop Date: 06/18/17 Status: Completed Results BLOOD BANK RESULTS Most recent to oldest [Reference Range]: 1 2 3 ABO/Rh O POS *Unknown* (06/18/17 1:32 AM) Antibody Scrn Negative (06/18/17 1:32 AM) ELECTROLYTES Most recent to oldest 1 2 3 [Reference Range]: Sodium Lvl [135-145 mEq/L] 137 mEq/L 137 mEq/L 138 mEq/L (06/21/17 6:20 AM) (06/20/17 5:56 AM) (06/19/17 5:35 AM) Potassium Lvl [3.5-5.1 3.3 mEq/L 4.0 mEq/L 4.0 mEq/L mEq/L] *LOW* (06/20/17 5:56 AM) (06/19/17 5:35 AM) (06/21/17 6:20 AM) Chloride Lvl [95-109 mEq/L] 99 mEq/L 104 mEq/L 105 mEq/L (06/21/17 6:20 AM) (06/20/17 5:56 AM) (06/19/17 5:35 AM) CO2 [24-32 mEq/L] 27 mEq/L 25 mEq/L 25 mEq/L (06/21/17 6:20 AM) (06/20/17 5:56 AM) (06/19/17 5:35 AM) AGAP [10.0-20.0 mEq/L] 14.3 mEq/L 12.0 mEq/L 12.0 mEq/L (06/21/17 6:20 AM) (06/20/17 5:56 AM) (06/19/17 5:35 AM) CHEM PANEL Most recent to oldest 1 2 3 [Reference Range]: Creatinine Lvl [0.50-1.40 0.80 mg/dL 0.70 mg/dL 0.70 mg/dL mg/dL] (06/21/17 6:20 AM) (06/20/17 5:56 AM) (06/19/17 5:35 AM) eGFR 122 mL/min/1.73m2 1 129 mL/min/1.73m2 2 129 mL/min/1.73m2 3 *NA* *NA* *NA* (06/21/17 6:20 AM) (06/20/17 5:56 AM) (06/19/17 5:35 AM) BUN [7-22 mg/dL] 9 mg/dL 5 mg/dL 7 mg/dL (06/21/17 6:20 AM) *LOW* (06/19/17 5:35 AM) (06/20/17 5:56 AM) B/C Ratio [6-25] 8 (06/18/17 1:32 AM) Glucose Lvl [70-99 mg/dL] 115 mg/dL 105 mg/dL 107 mg/dL *HI* *HI* *HI* (06/21/17 6:20 AM) (06/20/17 5:56 AM) (06/19/17 5:35 AM) Total Protein [6.4-8.4 8.3 g/dL g/dL] (06/18/17 1:32 AM) Albumin Lvl [3.5-5.0 g/dL] 4.3 g/dL (06/18/17 1:32 AM) Globulin [2.7-4.2 g/dL] 4.0 g/dL (06/18/17 1:32 AM) A/G Ratio [0.7-1.6] 1.1 (06/18/17 1:32 AM) Calcium Lvl [8.5-10.5 9.3 mg/dL 8.9 mg/dL 8.5 mg/dL mg/dL] (06/21/17 6:20 AM) (06/20/17 5:56 AM) (06/19/17 5:35 AM) ALT [0-65 unit/L] 28 unit/L (06/18/17 1:32 AM) AST [0-37 unit/L] 11 unit/L (06/18/17 1:32 AM) Alk Phos [39-136 unit/L] 109 unit/L (06/18/17 1:32 AM) Bili Total [0.2-1.3 mg/dL] 0.2 mg/dL (06/18/17 1:32 AM) Amylase Lvl [25-115 unit/L] 30 unit/L (06/18/17 1:32 AM) Lipase Lvl [73-393 unit/L] 67 unit/L *LOW* (06/18/17 1:32 AM) Lactic Acid Lvl [0.5-2.2 17.1 mMol/L 4 mMol/L] *CRIT* (06/18/17 1:32 AM) 1Result Comment: The eGFR is calculated [...] eGFR should be multiplied by the estimated BMI.2Result Comment: The eGFR is calculated using the CKD-EPI formula. In most young, healthy individualsthe eGFR will be >90 mL/ min/1.73m2. The [...] eGFR should be multiplied by the estimated BMI.3Result Comment: The eGFR is calculated using the CKD-EPI formula. In most young, healthy individualsthe eGFR will be >90 mL/ min/1.73m2. The [...] eGFR should be multiplied by the estimated BMI.4Result Comment: Critical Result(s) called to Liang at _06/18/2017 02:52 by_SM. Read back OK.[email or web address] Most recent to oldest [Reference Range]: 1 2 3 Etoh (%) .022 % *NA* (06/18/17 1:32 AM) Ethanol Lvl 22 mg/dL *NA* (06/18/17 1:32 AM) IMMUNOLOGY Most recent to oldest [Reference Range]: 1 2 3 HIV Ag/Ab 4th Gen [Negative] Negative *NA* (06/19/17 3:01 PM) HEMATOLOGY Most recent to oldest 1 2 3 [Reference Range]: WBC [3.7-10.4 K/CMM] 12.6 K/CMM 15.6 K/CMM 16.6 K/CMM *HI* *HI* *HI* (06/21/17 6:20 AM) (06/20/17 5:56 AM) (06/19/17 5:35 AM) RBC [4.70-6.10 M/CMM] 4.05 M/CMM 4.04 M/CMM 4.10 M/CMM *LOW* *LOW* *LOW* (06/21/17 6:20 AM) (06/20/17 5:56 AM) (06/19/17 5:35 AM) Hgb [14.0-18.0 g/dL] 11.3 g/dL 11.2 g/dL 11.3 g/dL *LOW* *LOW* *LOW* (06/21/17 6:20 AM) (06/20/17 5:56 AM) (06/19/17 5:35 AM) Hct [42.0-54.0 %] 33.4 % 33.8 % 34.3 % *LOW* *LOW* *LOW* (06/21/17 6:20 AM) (06/20/17 5:56 AM) (06/19/17 5:35 AM) MCV [80.0-94.0 fL] 82.6 fL 83.6 fL 83.7 fL (06/21/17 6:20 AM) (06/20/17 5:56 AM) (06/19/17 5:35 AM) MCH [27.0-31.0 pg] 28.0 pg 27.6 pg 27.5 pg (06/21/17 6:20 AM) (06/20/17 5:56 AM) (06/19/17 5:35 AM) MCHC [32.0-36.0 g/dL] 33.9 g/dL 33.0 g/dL 32.9 g/dL (06/21/17 6:20 AM) (06/20/17 5:56 AM) (06/19/17 5:35 AM) RDW [11.5-14.5 %] 13.4 % 13.5 % 13.7 % (06/21/17 6:20 AM) (06/20/17 5:56 AM) (06/19/17 5:35 AM) Platelet [133-450 K/CMM] 276 K/CMM 213 K/CMM 175 K/CMM (06/21/17 6:20 AM) (06/20/17 5:56 AM) (06/19/17 5:35 AM) MPV [7.4-10.4 fL] 8.9 fL 9.1 fL 8.6 fL (06/21/17 6:20 AM) (06/20/17 5:56 AM) (06/19/17 5:35 AM) Segs [45.0-75.0 %] 76.0 % 86.2 % 80.2 % *HI* *HI* *HI* (06/21/17 6:20 AM) (06/20/17 5:56 AM) (06/19/17 5:35 AM) Lymphocytes [20.0-40.0 %] 13.3 % 5.2 % 7.9 % *LOW* *LOW* *LOW* (06/21/17 6:20 AM) (06/20/17 5:56 AM) (06/19/17 5:35 AM) Monocytes [2.0-12.0 %] 10.0 % 8.5 % 11.6 % (06/21/17 6:20 AM) (06/20/17 5:56 AM) (06/19/17 5:35 AM) Eosinophils [0.0-4.0 %] 0.6 % 0.1 % 0.0 % (06/21/17 6:20 AM) (06/19/17 5:35 AM) (06/18/17 3:18 PM) Basophils [0.0-1.0 %] 0.1 % 0.1 % 0.2 % (06/21/17 6:20 AM) (06/20/17 5:56 AM) (06/19/17 5:35 AM) Segs-Bands # [1.5-8.1 K/CMM] 9.6 K/CMM 13.5 K/CMM 13.3 K/CMM *HI* *HI* *HI* (06/21/17 6:20 AM) (06/20/17 5:56 AM) (06/19/17 5:35 AM) Lymphocytes # [1.0-5.5 1.7 K/CMM 0.8 K/CMM 1.3 K/CMM K/CMM] (06/21/17 6:20 AM) *LOW* (06/19/17 5:35 AM) (06/20/17 5:56 AM) Monocytes # [0.0-0.8 K/CMM] 1.3 K/CMM 1.3 K/CMM 1.9 K/CMM *HI* *HI* *HI* (06/21/17 6:20 AM) (06/20/17 5:56 AM) (06/19/17 5:35 AM) Eosinophils # [0.0-0.5 0.1 K/CMM 0.0 K/CMM 0.0 K/CMM K/CMM] (06/21/17 6:20 AM) (06/18/17 3:18 PM) (06/18/17 1:32 AM) Basophils # [0.0-0.2 K/CMM] 0.0 K/CMM 0.0 K/CMM (06/18/17 3:18 PM) (06/18/17 1:32 AM) PT [12.0-14.7 seconds] 14.0 seconds (06/18/17 1:32 AM) INR [0.85-1.17] 1.06 (06/18/17 1:32 AM) PTT [22.9-35.8 seconds] 31.8 seconds (06/18/17 1:32 AM) Immunizations Given and Recorded Vaccine Date Status Refusal Reason diphtheria/pertussis, acel/tetanus adult 06/18/17 Given diphtheria/pertussis, acel/tetanus adult 07/06/16 Given Procedures No data available for this section Social History Social History Type Response Substance Abuse Use: None. Alcohol Never Smoking Status Current some day smoker; Type: ecstacy; Exposure to Tobacco Smoke None; Cigarette Smoking Last 365 Days No; Reg Smoking Cessation Counseling No Assessment and Plan Extracted from: Title: Trauma Progress Note Author: Lenny Singer MD Date: 06/20/17 Trauma Progress Note Subjective: Complains of constipation and 10/10 pain currently due to a recent walk. Tolerating solids but not eating very much. Understands the treatment plans. No acute issues otherwise. Objective: AAOx3, NAD NCAT Obese, Soft, Appropriately TTP, Incision C/D/I with lenore in place. Lenore to right forearm Vitals Tmp(F) Pulse BP RR SpO2 FIO2 06/20 07:31 98.9 96 181/98 20 99 --- 06/20 05:02 98.2 105 169/99 20 99 --- 06/19 23:34 97.8 108 168/96 20 97 --- 06/19 20:09 98.9 102 164/96 20 96 --- 06/19 16:00 98.8 101 158/92 18 95 --- 24 Hr Tmax: 99.1F (37.28c) at 06/19 12:00 Vital Signs are the last 5 in the past 48 hours. I&O Record In Out Bal 06/19 24hr Tot 1380 2300 -920 06/18 24hr Tot 1064 2000 -936 Labs (Last four charted values) WBC H 15.6 (JUN 20) H 16.6 (JUN 19) H 16.5 (JUN 18) H 16.9 ( JUN 18) Hgb L 11.2 (JUN 20) L 11.3 (JUN 19) L 11.7 (JUN 18) L 13.8 ( JUN 18) Hct L 33.8 (JUN 20) L 34.3 (JUN 19) L 34.4 (JUN 18) 43.0 (JUN 18) Plt 213 (JUN 20) 175 (JUN 19) 201 (JUN 18) 256 (JUN 18) Na 137 (JUN 20) 138 (JUN 19) 138 (JUN 18) 140 (JUN 18) K 4.0 (JUN 20) 4.0 (JUN 19) 4.2 (JUN 18) C 2.8 (JUN 18) CO2 25 (JUN 20) 25 (JUN 19) 26 (JUN 18) L 19 (JUN 18) Cl 104 (JUN 20) 105 (JUN 19) 106 (JUN 18) 104 (JUN 18) Cr 0.70 (JUN 20) 0.70 (JUN 19) 0.80 (JUN 18) 1.20 (JUN 18) BUN L 5 (JUN 20) 7 (JUN 19) 9 (JUN 18) 10 (JUN 18) Glucose Random H 105 (JUN 20) H 107 (JUN 19) H 113 (JUN 18) H 120 (JUN 18 ) Ca 8.9 (JUN 20) 8.5 (JUN 19) L 8.1 (JUN 18) L 8.3 (JUN 18) PT 14.0 (JUN 18) INR 1.06 (JUN 18) PTT 31.8 (JUN 18) Imaging: Recent Imaging reviewed No No new imaging since last progress note Assessment and Plan: 26 yo M s/p ex-lap with splenorraphy POD #2 1. Bowel regimen 2. Encourage ambulation 3. Pain management 4. IS use 5. DVT prophylaxis 6. Likely d/c in next 24 hours 7. Encourage PO intake
[2018-10-18] MEDS ORDERED: NA CHLORIDE 0.9% 1,000 ML ONE ×2 (14:24→16:46)
[2018-10-18] MEDS ORDERED: DICYCLOMINE HCL 10 MG CAP ONE (14:24)
[2018-10-18] MEDS ORDERED: ONDANSETRON 4 MG/2 ML VIAL ONE (14:24)
[2018-10-18 14:25] LABS: Absolute Monocytes 0.7 K/uL (0.1-1.3); Absolute Neutrophil 5.8 K/uL (1.8-8.0); Basophils % 0.2 % (0-1.3); Eosinophils % 0.1 % (0-4.4); Hematocrit 39.4 % (39.6-49.0); Lymphocytes % 23.2 % (15.3-44.8); MCH 29.5 pg (27.0-35.0); MCV 88.6 fL (80-100); MPV 8.7 fL (7.6-11.3); Monocytes % 7.9 % (3.3-12.3); RBC Red Blood Cell Count 4.45 M/uL (4.33-5.43)
[2018-10-18 15:30] LABS: ALT/SGPT 25 U/L (12-78); AST/SGOT 19 U/L (15-37); Albumin 4.2 g/dL (3.4-5.0); Alkaline Phosphatase 94 U/L (45-117); BUN Blood Urea Nitrogen 15 mg/dL (7-18); Bicarbonate 28 mmol/L (21-32); Bilirubin Direct < 0.1 mg/dL (0-0.2); Bilirubin Total 0.3 mg/dL (0.2-1.0); Glucose Level 91 mg/dL (74-106); Lipase 38 U/L (73-393); Potassium 5.2 mmol/L (3.5-5.1); Protein, Total 8.1 g/dL (6.4-8.2); Sodium Level 139 mmol/L (136-145)
[2018-10-18 16:08] LABS: Urine Blood NEGATIVE (NEG); Urine Glucose NEGATIVE (NEG); Urine Protein NEGATIVE (NEG); Urine Specific Gravity 1.015 (1.005-1.030)
[2018-10-18] MEDS ORDERED: MORPHINE 4 MG/ML SYR ONE (16:46)
--- NOTE | 2018-10-18 16:48 | RAD REPORT ---
EXAM DESCRIPTION: CT - Abdomen Pelvis W Contrast - 10/18/2018 4:24 pm CLINICAL HISTORY: Abdominal pain. Hematochezia COMPARISON: 2016 TECHNIQUE: Computed axial tomography of the abdomen and pelvis was obtained. 100 cc Isovue-300 is ad ministered intravenously. Oral contrast was given. All CT scans are performed using dose optimization technique as appropriate and may include automated exposure control or mA/KV adjustment according to patient size. FINDINGS: The liver, spleen, pancreas, adrenals and kidneys appear unremarkable. A large amount stool is present throughout the colon. There is no evidence of diverticulitis/colitis IMPRESSION: Large amount stool throughout the colon
[2018-10-18] MEDS ORDERED: LEVALBUTEROL 0.63 MG/3 ML NEB ONE (17:37)
--- NOTE | 2018-10-18 17:39 | ER ---
Nurse's Notes [facility] Name: Flip Villar Age: 28 yrs Sex: Male : 1990 Arrival Date: 10/18/2018 Time: 11:49 Bed 26 Private MD: Unknown, Unknown Diagnosis: Other abdominal pain-with history of ulcerative colitis Presentation: 10/18 12:16 Presenting complaint: Patient states: bloody stool started today, hx of ulcerative sv colitis. Pt reports losing 100 pounds in a year for no reason. Transition of care: patient was not received from another setting of care. Onset of symptoms was October 18, 2018. Care prior to arrival: None. 12:16 Method Of Arrival: Ambulatory sv 12:16 Acuity: SOBIA 3 sv 13:15 Risk Assessment: Do you want to hurt yourself or someone else? Patient reports no kr2 desire to harm self or others. Initial Sepsis Screen: Does the patient meet any 2 criteria? No. Patient's initial sepsis screen is negative. Does the patient have a suspected source of infection? No. Patient's initial sepsis screen is negative. Triage Assessment: 12:16 General: Appears in no apparent distress. uncomfortable, Behavior is calm, cooperative. sv Pain: Complains of pain in abdomen Pain currently is 8 out of 10 on a pain scale. Neuro: Level of Consciousness is awake, alert, obeys commands, Oriented to person, time, situation, Moves all extremities. Full function Gait is steady, Speech is normal. Respiratory: Respiratory effort is even, unlabored, Respiratory pattern is regular, symmetrical. GI: Reports bloody stool. Historical: - Allergies: 12:17 No Known Allergies; sv - PMHx: 12:17 Hypertension; ulcerative colitis; sv - PSHx: 12:17 None; sv - Immunization history:: Flu vaccine is not up to date. - Social history:: Smoking status: Patient uses tobacco products, denies chronic smoking, but will smoke occasionally, Patient/guardian denies using alcohol, street drugs, IV drugs. - Ebola Screening: : No symptoms or risks identified at this time. Screenin:15 Abuse screen: Denies threats or abuse. Denies injuries from another. Nutritional kr2 screening: No deficits noted. Tuberculosis screening: No symptoms or risk factors identified. Fall Risk None identified. Assessment: 13:15 General: Appears in no apparent distress. uncomfortable, well groomed, well developed, kr2 well nourished, Behavior is calm, cooperative, appropriate for age. Pain: Complains of pain in mouth and abdomen Pain does not radiate. Pain currently is 8 out of 10 on a pain scale. Quality of pain is described as aching, crampy, pressure, Is continuous, Alleviated by nothing. Aggravated by eating, increased activity, Noted to be grimacing. Neuro: Level of Consciousness is awake, alert, obeys commands, Oriented to person, place, time, situation. Cardiovascular: Capillary refill < 3 seconds in bilateral fingers Patient's skin is warm and dry. Respiratory: Airway is patent Respiratory effort is even, unlabored, Respiratory pattern is regular, symmetrical. GI: Abdomen is flat, non-distended, Bowel sounds present X 4 quads. Abd is soft X 4 quads Abdomen is tender to palpation in right lower quadrant and left lower quadrant Reports diarrhea, bloody stool, nausea. : Urine is clear. EENT: Oral mucosa is moist. Poor dentition noted. Derm: Skin is intact, is healthy with good turgor, Skin is pink, warm \T\ dry. Musculoskeletal: Circulation, motion, and sensation intact. 14:15 Reassessment: Patient appears in no apparent distress at this time. Patient and/or kr2 family updated on plan of care and expected duration. Pain level reassessed. Patient is alert, oriented x 3, equal unlabored respirations, skin warm/dry/pink. 15:15 Reassessment: Patient appears in no apparent distress at this time. Patient and/or kr2 family updated on plan of care and expected duration. Pain level reassessed. Patient is alert, oriented x 3, equal unlabored respirations, skin warm/dry/pink. Patient states symptoms have improved. 16:30 Reassessment: Patient appears in no apparent distress at this time. Patient and/or kr2 family updated on plan of care and expected duration. Pain level reassessed. Patient is alert, oriented x 3, equal unlabored respirations, skin warm/dry/pink. 17:30 Reassessment: Patient appears in no apparent distress at this time. Patient and/or kr2 family updated on plan of care and expected duration. Pain level reassessed. Patient is alert, oriented x 3, equal unlabored respirations, skin warm/dry/pink. Patient states feeling better. Patient states symptoms have improved. Vital Signs: 12:18 BP 119 / 68; Pulse 70; Resp 16; Temp 98.0; Pulse Ox 100% ; Weight 68.04 kg; Height 5 sv ft. 8 in. (172.72 cm); Pain 8/10; 15:00 BP 162 / 99; Pulse 79; Resp 18; Pulse Ox 100% on R/A; mg2 16:06 BP 160 / 100; Pulse 79; Resp 18; Pulse Ox 100% on R/A; mg2 17:00 BP 148 / 95; Pulse 76; Resp 16; Pulse Ox 100% ; kr2 12:18 Body Mass Index 22.81 (68.04 kg, 172.72 cm) sv ED Course: 11:49 Patient arrived in ED. ag5 11:49 None, None is Private Physician. ag5 11:49 Unknown, Unknown is Private Physician. ag5 12:09 Triage completed. sv 12:19 Arm band placed on. sv 13:06 Logan Mohr PA is PHCP. cp 13:06 Logan Ramos MD is Attending Physician. cp 13:15 Patient has correct armband on for positive identification. Placed in gown. Bed in low kr2 position. Call light in reach. Side rails up X 1. Adult w/ patient. turfgrass management professor on. Pulse ox on. NIBP on. Door closed. Warm blanket given. Head of bed elevated. 13:45 Inserted saline lock: 22 gauge in right forearm, using aseptic technique. Blood kr2 collected. 13:52 Lary Samaniego, [place] is Primary Nurse. kr2 16:16 Patient moved to NM. ak 16:23 CT completed. Patient tolerated procedure well. Patient moved back from NM. ak 16:24 CT Abd/Pelvis - W/Contrast In Process Unspecified. EDMS 17:37 Regino Malcolm MD is Referral Physician. cp 17:56 No provider procedures requiring assistance completed. kr2 17:58 IV discontinued, intact, bleeding controlled, No redness/swelling at site. Pressure kr2 dressing applied. Administered Medications: 14:21 Drug: Bentyl 20 mg Route: PO; kr2 15:15 Follow up: Response: No adverse reaction; Pain is decreased kr2 14:21 Drug: Zofran 4 mg Route: IVP; Site: right forearm; kr2 15:00 Follow up: Response: No adverse reaction kr2 14:21 Drug: NS 0.9% 1000 ml Route: IV; Rate: 1 bolus; Site: right forearm; kr2 15:30 Follow up: Response: No adverse reaction; IV Status: Completed infusion kr2 16:44 Drug: NS 0.9% 1000 ml Route: IV; Rate: 1 bolus; Site: right antecubital; kr2 17:45 Follow up: Response: No adverse reaction; IV Status: Completed infusion kr2 16:46 Drug: morphine 4 mg Route: IVP; Site: right antecubital; kr2 17:00 Follow up: Response: No adverse reaction; Pain is decreased kr2 Outcome: 17:38 Discharge ordered by MD. cp 17:57 Discharged to home ambulatory, with family. kr2 17:57 Condition: good 17:57 Discharge instructions given to patient, Instructed on discharge instructions, follow up and referral plans. medication usage, Demonstrated understanding of instructions, follow-up care, medications, Prescriptions given X 4. 18:04 Patient left the ED. kr2 Signatures: Dispatcher [employer] EDMicaela Ventura RN RN Logan Liu PA PA cp Jordan, Nathan nj Reaves, Karey, RN RN kr2 Carrillo House RN RN [facility] Estelle Cardozo 5 Corrections: (The following items were deleted from the chart) 12:10 12:07 Presenting complaint: Mother states: pt has been having diarrhea for about 2 days sv and yesterday she had a bloody stool. c/o cough, brother was dx with strep. 12:10 12:07 Transition of care: patient was not received from another setting of care. sv 12:10 12:07 Onset of symptoms was October 18, 2018 [facility] 12:10 12:07 Care prior to arrival: None. sv 12:10 12:07 Method Of Arrival: Ambulatory sv 12:10 12:07 Acuity: SOBIA 3 sv 12:19 12:16 Presenting complaint: Patient states: bloody stool started today, hx of sv ulcerative colitis. sv 12:19 12:18 BP 115 / 70; Pulse 70bpm; Resp 16bpm; Pulse Ox 100%; Temp 98.0F; 68.04 kg; Height sv 5 ft. 8 in.; BMI: 22.8; Pain 8/10; sv
--- NOTE | 2018-10-18 17:39 | EDPHYS ---
Physician Documentation [facility] Name: Flip Villar Age: 28 yrs Sex: Male : 1990 Arrival Date: 10/18/2018 Time: 11:49 Bed 26 Private MD: Unknown, Unknown ED Physician Loagn Ramos HPI: 10/18 14:15 This 28 yrs old Male presents to ER via Ambulatory with complaints of Bloody cp Stools. 14:15 The patient presents to the emergency department with rectal bleeding, a small amount, cp bright red blood with bowel movement, in toilet bowl, in a single episode. Onset: The symptoms/episode began/occurred this morning. Abdominal pain: located in the left lower quadrant. 14:15 Associated signs and symptoms: Pertinent negatives: constipation, diarrhea, fever, cp syncope. Severity of symptoms: in the emergency department the symptoms are unchanged despite home interventions. Patient reports history of ulcerative colitis but is not currently being treated. Historical: - Allergies: 12:17 No Known Allergies; sv - PMHx: 12:17 Hypertension; ulcerative colitis; sv - PSHx: 12:17 None; sv - Immunization history:: Flu vaccine is not up to date. - Social history:: Smoking status: Patient uses tobacco products, denies chronic smoking, but will smoke occasionally, Patient/guardian denies using alcohol, street drugs, IV drugs. - Ebola Screening: : No symptoms or risks identified at this time. ROS: 14:20 Constitutional: Positive for weight loss, Negative for body aches, chills, fever, poor cp PO intake. 14:20 Eyes: Negative for injury, pain, redness, and discharge. cp 14:20 ENT: Negative for drainage from ear(s), ear pain, sore throat, difficulty swallowing, difficulty handling secretions. 14:20 Cardiovascular: Negative for chest pain, edema, palpitations. 14:20 Respiratory: Negative for cough, shortness of breath, wheezing. 14:20 Abdomen/GI: Positive for abdominal pain, rectal bleeding, Negative for vomiting, diarrhea, constipation, anorexia, black/tarry stool. 14:20 Back: Negative for pain at rest, pain with movement. 14:20 : Negative for urinary symptoms, testicular pain 14:20 Skin: Negative for cellulitis, rash. 14:20 Neuro: Negative for altered mental status, dizziness, headache, syncope, near syncope, weakness. 14:20 All other systems are negative. Exam: 14:27 Constitutional: The patient appears in no acute distress, alert, awake, non-toxic, well cp developed, well nourished. 14:27 Head/Face: Normocephalic, atraumatic. Eyes: Pupils equal round and reactive to light, cp extra-ocular motions intact. Lids and lashes normal. Conjunctiva and sclera are non-icteric and not injected. Cornea within normal limits. Periorbital areas with no swelling, redness, or edema. ENT: Nares patent. No nasal discharge, no septal abnormalities noted. Tympanic membranes are normal and external auditory canals are clear. Oropharynx with no redness, swelling, or masses, exudates, or evidence of obstruction, uvula midline. Mucous membranes moist. Chest/axilla: Normal chest wall appearance and motion. Nontender with no deformity. No lesions are appreciated. Cardiovascular: Regular rate and rhythm with a normal S1 and S2. No gallops, murmurs, or rubs. Normal PMI, no JVD. No pulse deficits. Respiratory: Lungs have equal breath sounds bilaterally, clear to auscultation and percussion. No rales, rhonchi or wheezes noted. No increased work of breathing, no retractions or nasal flaring. 14:27 Abdomen/GI: Inspection: abdomen appears normal, Bowel sounds: active, all quadrants, Palpation: soft, in all quadrants, moderate abdominal tenderness, in the left lower quadrant, rebound tenderness, is not appreciated, voluntary guarding, is elicited in the left lower quadrant, Rectal exam: Stool: brown, guaiac positive. 14:27 Back: pain, is absent, ROM is normal. 14:27 Skin: cellulitis, is not appreciated, no rash present. Vital Signs: 12:18 BP 119 / 68; Pulse 70; Resp 16; Temp 98.0; Pulse Ox 100% ; Weight 68.04 kg; Height 5 sv ft. 8 in. (172.72 cm); Pain 8/10; 15:00 BP 162 / 99; Pulse 79; Resp 18; Pulse Ox 100% on R/A; mg2 16:06 BP 160 / 100; Pulse 79; Resp 18; Pulse Ox 100% on R/A; mg2 17:00 BP 148 / 95; Pulse 76; Resp 16; Pulse Ox 100% ; kr2 12:18 Body Mass Index 22.81 (68.04 kg, 172.72 cm) sv MDM: 13:10 Patient medically screened. cp 14:00 Differential diagnosis: gastritis, diverticulitis, colitis, anemia. cp 17:38 Data reviewed: vital signs, nurses notes, lab test result(s), radiologic studies, CT cp scan, and as a result, I will discharge patient. 17:38 Counseling: I had a detailed discussion with the patient and/or guardian regarding: the cp historical points, exam findings, and any diagnostic results supporting the discharge/admit diagnosis, lab results, radiology results, the need for outpatient follow up, a computer applications engineer, to return to the emergency department if symptoms worsen or persist or if there are any questions or concerns that arise at home. 17:38 Response to treatment: the patient's symptoms have markedly improved after treatment, cp and as a result, I will discharge patient. 10/18 13:48 Order name: Basic Metabolic Panel; Complete Time: 16:13 cp 10/18 16:14 Interpretation: Normal except: K 5.2; CA 8.4. cp 10/18 13:48 Order name: CBC with Diff; Complete Time: 16:13 cp 10/18 16:13 Interpretation: Normal except: HGB 13.1; HCT 39.4; MCV 88.6. 10/18 13:48 Order name: Creatinine for Radiology; Complete Time: 16:13 cp 10/18 13:48 Order name: Hepatic Function; Complete Time: 16:13 cp 10/18 13:48 Order name: Lipase; Complete Time: 16:13 cp 10/18 13:48 Order name: PT-INR; Complete Time: 16:13 cp 10/18 13:48 Order name: Ptt, Activated; Complete Time: 16:13 cp 10/18 13:48 Order name: CT Abd/Pelvis - W/Contrast; Complete Time: 16:53 cp 10/18 15:01 Order name: Urine Dipstick--Ancillary (enter results) bd 10/18 16:45 Order name: Potassium; Complete Time: 17:37 kr2 10/18 17:37 Interpretation: Within normal limits: K 4.0. cp 10/18 13:48 Order name: IV Saline Lock; Complete Time: 14:22 cp 10/18 13:48 Order name: Labs collected and sent; Complete Time: 14:22 cp 10/18 13:48 Order name: Urine Dipstick-Ancillary (obtain specimen); Complete Time: 14:22 cp Administered Medications: 14:21 Drug: Bentyl 20 mg Route: PO; kr2 15:15 Follow up: Response: No adverse reaction; Pain is decreased kr2 14:21 Drug: Zofran 4 mg Route: IVP; Site: right forearm; kr2 15:00 Follow up: Response: No adverse reaction kr2 14:21 Drug: NS 0.9% 1000 ml Route: IV; Rate: 1 bolus; Site: right forearm; kr2 15:30 Follow up: Response: No adverse reaction; IV Status: Completed infusion kr2 16:44 Drug: NS 0.9% 1000 ml Route: IV; Rate: 1 bolus; Site: right antecubital; kr2 17:45 Follow up: Response: No adverse reaction; IV Status: Completed infusion kr2 16:46 Drug: morphine 4 mg Route: IVP; Site: right antecubital; kr2 17:00 Follow up: Response: No adverse reaction; Pain is decreased kr2 Disposition: 10/18/18 17:38 Discharged to Home. Impression: Other abdominal pain - with history of ulcerative colitis. - Condition is Stable. - Discharge Instructions: Abdominal Pain, Adult. - Prescriptions for Cipro 500 mg Oral Tablet - take 1 tablet by ORAL route every 12 hours for 10 days; 20 tablet. Tylenol- Codeine #3 300-30 mg Oral Tablet - take 2 tablets by ORAL route every 6 hours As needed; 15 tablet. Metronidazole 500 mg Oral Tablet - take 1 tablet by ORAL route every 8 hours; 30 tablet. Medrol (Martir) 4 mg Oral Tablets, Dose Pack - take 1 tablet by ORAL route as directed - follow package instructions; 1 packet. - Medication Reconciliation Form, Thank You Letter, Antibiotic Education, Prescription Opioid Use form. - Follow up: Regino Malcolm MD; When: 2 - 3 days; Reason: Recheck today's complaints. - Problem is new. - Symptoms have improved. Addendum: 10/21/2018 07:00 Co-signature as Attending Physician, Logan Ramos MD I agree with the assessment and c min plan of care. Signatures: Dispatcher [employer] Micaela Claire RN RN sv Anderson, Corey, MD MD lake Page, Logan, PA PA Lary Crisostomo, RN RN kr2 Corrections: (The following items were deleted from the chart) 10/18 16:14 16:13 Normal except: K 5.2. cp cp 18:04 17:38 10/18/2018 17:38 Discharged to Home. Impression: Other abdominal pain - with kr2 history of ulcerative colitis. Condition is Stable. Forms are Medication Reconciliation Form, Thank You Letter, Antibiotic Education, Prescription Opioid Use. Follow up: Regino Malcolm; When: 2 - 3 days; Reason: Recheck today's complaints. Problem is new. Symptoms have improved. cp
[2018-10-18 22:32] VITALS: TEMP 98; O2SAT 100
[2018-10-18 22:37] VITALS: BP 148/95
== END 2018-10-18 18:04 | disposition home or self-care (01) ==
LOC: ER 11:46
DX: K51.90 Ulcerative colitis, unspecified, without complications (principal); I10 Essential (primary) hypertension; Z72.0 Tobacco use
CPT/HCPCS: 36415; 74177; 80048; 80076; 81003; 83690; 84132; 85025; 85610; 85730; 99285; J2405; J7030; Q9967

== ENCOUNTER 2024-06-14 21:32 | Emergency (ER) | payer OTHER ==
--- NOTE | 2024-06-14 22:36 | RAD REPORT ---
EXAM DESCRIPTION: Estella Single View06/14/2024 10:23 pm CLINICAL HISTORY: Chest pain COMPARISON: May 2004 FINDINGS: The lungs appear clear of acute infiltrate. The heart is normal size IMPRESSION: No acute abnormalities displayed
[2024-06-14 22:47] LABS: Absolute Basophils 0.1 K/uL (0-0.5); Absolute Lymphocytes (CBC) 1.8 K/uL (0.7-4.9); Absolute Neutrophil 9.1 K/uL (1.8-8.0); Basophils % 0.5 % (0-1.3); Hematocrit 43.5 % (39.6-49.0); Hemoglobin 14.6 g/dL (13.6-17.9); Lymphocytes % 15.2 % (15.3-44.8); MCH 30.6 pg (27.0-35.0); MCHC 33.5 g/dL (32.0-36.0); MCV 91.4 fL (80-100); MPV 8.5 fL (7.6-11.3); Monocytes % 8.4 % (3.3-12.3); Neutrophils % 75.9 % (41.7-73.7); Platelets 298 thou/uL (152-406); RBC Red Blood Cell Count 4.76 M/uL (4.33-5.43); Red Cell Distribution Width 13.5 % (12.1-15.2)
[2024-06-15 00:10] LABS: Anion Gap 9.8 mEq/L (5.0-15.0); Potassium 3.8 mEq/L (3.5-5.1); Troponin High Sensitivity 27.7 pg/mL (<58.9)
--- NOTE | 2024-06-15 00:21 | ER ---
Nurse's Notes [facility] Name: Flip Villar Age: 33 yrs Sex: Male : 1990 Arrival Date: 06/14/2024 Time: 21:32 Bed 4 Private MD: Diagnosis: Chest pain, unspecified;Chronic combined systolic (congestive) and diastolic (congestive) heart failure Presentation: 06/14 21:34 Chief complaint: EMS states: toned out to [facility] for chest pain. reports left sided cp me1 that radiates to the left arm with SOB, nausea. Coronavirus screen: Vaccine status: Patient reports being unvaccinated. Ebola Screen: No symptoms or risks identified at this time. Initial Sepsis Screen: Does the patient meet any 2 criteria? No. Patient's initial sepsis screen is negative. Does the patient have a suspected source of infection? No. Patient's initial sepsis screen is negative. Risk Assessment: Do you want to hurt yourself or someone else? Patient reports no desire to harm self or others. Onset of symptoms was June 14, 2024. Care prior to arrival: Medication(s) given: ASA, 81 mg, x 4, Nitroglycerin, 0.4 mg SL x 1, zofran 4 mg, IV initiated. 20 GA, in the right hand. 21:34 Method Of Arrival: EMS: [facility] 21:34 Acuity: SOBIA 2 me1 Triage Assessment: 21:36 General: Appears uncomfortable, well groomed, well developed, well nourished, Behavior me1 is calm, cooperative, appropriate for age. Pain: Complains of pain in anterior aspect of left upper chest Pain radiates to left arm Pain currently is 8 out of 10 on a pain scale. Quality of pain is described as heavy, pressure, Pain began suddenly, Is continuous. EENT: No signs and/or symptoms were reported regarding the EENT system. Neuro: Level of Consciousness is awake, alert, obeys commands, Oriented to person, place, time, situation, Appropriate for age. Cardiovascular: Patient's skin is warm and dry. Respiratory: Airway is patent Trachea midline Respiratory effort is even, unlabored, Respiratory pattern is regular, symmetrical. GI: Reports nausea. : No signs and/or symptoms were reported regarding the genitourinary system. Derm: Skin is intact, is healthy with good turgor, Skin is pink, warm \T\ dry. Musculoskeletal: No signs and/or symptoms reported regarding the musculoskeletal system. Historical: - Allergies: 21:36 No Known Allergies; me1 - Home Meds: 22:01 hydrochlorothiazide 25 mg Oral tablet [Active]; bo1 - PMHx: 21:36 CHF (2022); Hypertension; ulcerative colitis; Anxiety; me1 - Immunization history:: Adult Immunizations up to date. - Infectious Disease History:: Denies. - Social history:: Smoking status: Patient denies any tobacco usage or history of. Screenin:39 [facility] ED Fall Risk Assessment (Adult) History of falling in the last 3 months, me1 including since admission No falls in past 3 months (0 pts) Confusion or Disorientation No (0 pts) Intoxicated or Sedated No (0 pts) Impaired Gait No (0 pts) Mobility Assist Device Used No (0 pt) Altered Elimination No (0 pt) Score/Fall Risk Level 0 - 2 = Low Risk Maintained a safe environment, Provided non-skid footwear, Hourly rounding (assess needs \T\ fall precautionary measures) done. Abuse screen: Denies threats or abuse. Nutritional screening: No deficits noted. Tuberculosis screening: No symptoms or risk factors identified. Assessment: 21:39 General: see triage assessment. . Pain: Complains of pain in chest. me1 06/15 00:11 Reassessment: Patient appears in no apparent distress at this time. Patient and/or bm8 family updated on plan of care and expected duration. Pain level reassessed. Patient is alert, oriented x 3, equal unlabored respirations, skin warm/dry/pink. Patient denies pain at this time. Patient states feeling better. Patient states symptoms have improved. Reassessment: pt declinied repeat trop. Pain: Denies pain. Vital Signs: 06/14 21:34 BP 153 / 94; Pulse 114; Resp 19; Temp 98.6; Pulse Ox 96% on R/A; Weight 113.4 kg; me1 Height 5 ft. 8 in. ; Pain 8/10; 22:30 BP 157 / 99; Pulse 99; Resp 16; Pulse Ox 97% on R/A; me1 23:00 BP 144 / 94; Pulse 105; Resp 22; Pulse Ox 97% on R/A; me1 06/15 00:17 BP 141 / 92; Pulse 99; Resp 17; Temp 98.6; Pulse Ox 98% ; Pain 0/10; bm8 08 21:34 Body Mass Index 38.01 (113.40 kg, 172.72 cm) me1 08 21:34 Pain Scale: Adult me1 06/15 00:17 Pain Scale: Adult bm8 Chappell Coma Score: 00:28 Eye Response: spontaneous(4). Motor Response: obeys commands(6). Verbal Response: bm8 oriented(5). Total: 15. ED Course: 06/14 21:34 Patient arrived in ED. me1 21:36 Triage completed. me1 21:36 Arm band placed on Patient placed in an exam room. me1 21:39 Patient has correct armband on for positive identification. Bed in low position. Call me1 light in reach. Side rails up X2. Provided Education on: POC. Verbalized understanding. . Client placed on continuous cardiac and pulse oximetry monitoring. NIBP monitoring applied. mortgage specialist on. Pulse ox on. NIBP on. 21:39 No provider procedures requiring assistance completed. Patient maintains SpO2 me1 saturation greater than 95% on room air. 21:39 Maintain EMS IV. Dressing intact. Good blood return noted. Site clean \T\ dry. Gauge \T\ me 1 site: 20g r hand. Flushed with 10 mL NS. 21:52 EKG done, by ED staff, reviewed by David Hathaway MD. me1 21:53 David Hathaway MD is Attending Physician. bo1 22:01 Kristen David, RN is Primary Nurse. me1 22:01 Basic Metabolic Panel Sent. me1 22:01 CBC with Diff Sent. me1 22:01 NT PRO-BNP Sent. me1 22:01 Troponin HS Sent. me1 22:25 XRAY Chest (1 view) In Process Unspecified. EDMS 22:27 Initial lab(s) drawn, by ma, sent to lab. me1 06/15 00:28 IV discontinued, intact, bleeding controlled, No redness/swelling at site. Pressure bm8 dressing applied. Administered Medications: No medications were administered Medication: 06/14 21:39 VIS not applicable for this client. me1 Outcome: 06/15 00:20 Discharge ordered by . bo1 00:28 Discharged to home ambulatory, bm8 00:28 Condition: stable 00:28 Discharge instructions given to patient, Instructed on discharge instructions, follow up and referral plans. medication usage, safety practices, Demonstrated understanding of instructions, follow-up care, medications, 00:28 Patient left the ED. bm8 Signatures: Dispatcher [employer] EDMS Kristen David RN RN me1 David Hathaway MD MD bo1 Lyle Liu RN RN bm8 Corrections: (The following items were deleted from the chart) 06/14 21:53 21:52 EKG done, by ED staff, me1 me1 22:03 22:01 Home Meds: hydrochlorothiazide 25 mg Oral tablet; bo1 bo1
--- NOTE | 2024-06-15 00:21 | EDPHYS ---
Physician Documentation [facility] Name: Flip Villar Age: 33 yrs Sex: Male : 1990 Arrival Date: 06/14/2024 Time: 21:32 Bed 4 Private MD: ED Physician David Hathaway HPI: 06/14 22:00 This 33 yrs old Male presents to ER via EMS with complaints of Chest Pain. bo1 22:00 The patient or guardian reports chest pain that is located primarily in the anterior bo1 chest wall. The pain does not radiate. Associated signs and symptoms: Pertinent positives: Pt was "stressing" out and states he got anxious, drove to the ER, Pertinent negatives: abdominal pain, diaphoresis. The chest pain is described as sharp. Duration: The patient or guardian reports a single episode, that is now resolved, Lasted 1 hour. The patient has experienced similar episodes in the past, Was told he has HTN and CHF. Historical: - Allergies: 21:36 No Known Allergies; me1 - Home Meds: 22:01 hydrochlorothiazide 25 mg Oral tablet [Active]; bo1 - PMHx: 21:36 CHF (2022); Hypertension; ulcerative colitis; Anxiety; me1 - Immunization history:: Adult Immunizations up to date. - Infectious Disease History:: Denies. - Social history:: Smoking status: Patient denies any tobacco usage or history of. ROS: 23:17 Constitutional: Negative for fever, chills, and weight loss, bo1 23:17 Cardiovascular: Positive for chest pain, 23:17 Respiratory: Negative for cough, shortness of breath, 23:17 Abdomen/GI: Negative for abdominal pain, 23:17 Skin: Negative for rash, 23:17 All other systems are negative, Exam: 23:16 ECG was reviewed by the Attending Physician. bo1 06/15 00:27 Constitutional: This is a well developed, well nourished patient who is awake, alert, bo1 and in no acute distress. Constitutional: The patient appears in no acute distress, alert, awake, comfortable, Eyes: Sclera: icterus, is not appreciated, Neck: External neck: is normal, Cardiovascular: Rate: normal, Rhythm: regular, Pulses: no pulse deficits are appreciated, Respiratory: the patient does not display signs of respiratory distress, Respirations: normal, Breath sounds: decreased breath sounds, that are mild, are located in both bases, Abdomen/GI: Inspection: obese Palpation: abdomen is soft and non-tender, voluntary guarding, Musculoskeletal/extremity: Circulation is intact in all extremities. Edema, is not appreciated, Calves: are non-tender, Skin: Normal w/o acute changes. Vital Signs: 06/14 21:34 BP 153 / 94; Pulse 114; Resp 19; Temp 98.6; Pulse Ox 96% on R/A; Weight 113.4 kg; me1 Height 5 ft. 8 in. ; Pain 8/10; 22:30 BP 157 / 99; Pulse 99; Resp 16; Pulse Ox 97% on R/A; me1 23:00 BP 144 / 94; Pulse 105; Resp 22; Pulse Ox 97% on R/A; nm1 06/15 00:17 BP 141 / 92; Pulse 99; Resp 17; Temp 98.6; Pulse Ox 98% ; Pain 0/10; bm8 06/14 21:34 Body Mass Index 38.01 (113.40 kg, 172.72 cm) [facility] [place] 06/14 21:34 Pain Scale: Adult nm1 06/15 00:17 Pain Scale: Adult bm8 [place] Coma Score: 00:28 Eye Response: spontaneous(4). Motor Response: obeys commands(6). Verbal Response: bm8 oriented(5). Total: 15. MDM: 06/14 21:53 Patient medically screened. 1 06/15 00:25 Differential diagnosis: abnormal EKG, anxiety, coronary artery disease congestive heart bo1 failure Changes in HBP and CHF. Data reviewed: vital signs, lab test result(s), cardiac enzymes, CBC, electrolytes, BNP. Management of patient was discussed with the following: Pt, adjustment needed - lisinopril and furosemide. ED course: Pt feels better, pt refused 2nd troponin draw. 06/14 21:56 Order name: Basic Metabolic Panel; Complete Time: 00:18 [facility] 06/14 21:56 Order name: CBC with Diff; Complete Time: 23:08 [facility] 06/14 21:56 Order name: NT PRO-BNP; Complete Time: 00:18 [facility] 06/14 21:56 Order name: Troponin HS; Complete Time: 00:18 [facility] 06/14 21:56 Order name: XRAY Chest (1 view); Complete Time: 23:08 bo1 06/14 21:56 Order name: Cardiac monitoring; Complete Time: 22:01 bo1 06/14 21:56 Order name: EKG - Nurse/Tech; Complete Time: 22:01 bo1 06/14 21:56 Order name: IV Saline Lock; Complete Time: 22:01 bo1 06/14 21:56 Order name: Labs collected and sent; Complete Time: 22:02 bo1 06/14 21:56 Order name: O2 Per Protocol; Complete Time: 22: bo1 06/14 21:56 Order name: O2 Sat Monitoring; Complete Time: 22:01 bo EC/10 23:16 Rate is 108 beats/min. Rhythm is regular. QRS [place] is Normal. [place] interval is normal. bo1 QRS interval is normal. QT interval is normal. No Q waves. T waves are Normal. T waves are Inverted in lead V6. T waves are Flattened. No ST changes noted. Clinical impression: LVH and Sinus tachycardia. Interpreted by me. Reviewed by me. Administered Medications: No medications were administered Disposition Summary: 06/15/24 00:20 Discharge Ordered Notes: Location: Home bo1 Problem: chronic bo1 Symptoms: have improved bo1 Condition: Stable bo1 Diagnosis - Chest pain, unspecified bo1 - Chronic combined systolic (congestive) and diastolic (congestive) heart failure bo1 Followup: bo1 - With: Private Physician - When: 2 - 3 days - Reason: Recheck today's complaints Discharge Instructions: - Discharge Summary Sheet bo1 - Nonspecific Chest Pain, Adult bo1 - Heart Failure, Diagnosis bo1 - Nonspecific Chest Pain, Adult, [id number] bo1 Forms: - Medication Reconciliation Form bo1 - Antibiotic Education bo1 - Prescription Opioid Use bo1 - Patient Portal Instructions bo1 - Leadership Thank You Letter bo1 Signatures: Dispatcher [employer] [facility] Kristen David RN RN me1 David Hathaway MD MD bo1 Corrections: (The following items were deleted from the chart) 21:58 21:58 Chest Single View+RAD.RAD.BRZ ordered. EDNE EDMS 22:03 22:01 Home Meds: hydrochlorothiazide 25 mg Oral tablet; bo1 bo1
[2024-06-15 01:24] VITALS: TEMP 98.6
[2024-06-15 01:28] VITALS: BP 141/92; O2SAT 98
--- NOTE | 2024-06-16 13:48 | EKG ---
Test Date: 2024-06-14 Test Time: 21:49:49 Rigging Up Man: MEASUREMENT RESULTS: Intervals: Rate: 108 VT: 156 QRSD: 86 QT: 344 QTc: 460 Thompson: P: 49 VT: 156 QRS: -14 T: -59 INTERPRETIVE STATEMENTS: Sinus tachycardia Voltage criteria for left ventricular hypertrophy T wave abnormality, consider lateral ischemia Abnormal ECG Compared to ECG 05/17/2024 19:43:02 T-wave abnormality now present Possible ischemia now present Sinus rhythm no longer present Prolonged QT interval no longer present Electronically Signed On 06-16-24 13:45:09 CDT by Jorgito Grady
== END 2024-06-15 00:28 | disposition home or self-care (01) ==
LOC: ER 21:32
DX: R07.89 Other chest pain (principal); I50.42 Chronic combined systolic (congestive) and diastolic (congestive) heart failure; I10 Essential (primary) hypertension; F41.9 Anxiety disorder, unspecified
CPT/HCPCS: 36415; 71045; 80048; 83880; 84484; 85025; 93005; 99284

== ENCOUNTER 2024-09-09 13:02 | Emergency (ER) | payer OTHER ==
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
[2024-09-09] MEDS ORDERED: HYDROCODONE/APAP 5/325 MG TAB ONE (13:23)
[2024-09-09] MEDS ORDERED: CEPHALEXIN 250 MG CAP ONE (13:23)
[2024-09-09 13:46] VITALS: BP 157/99; TEMP 98; O2SAT 100
== END 2024-09-09 13:27 | disposition home or self-care (01) ==
LOC: ER 13:02
DX: T23.261A Burn of second degree of back of right hand, initial encounter (principal)
CPT/HCPCS: 99283

== ENCOUNTER 2024-11-10 22:07 | Emergency (ER) | payer OTHER ==
[2024-11-10 22:45] LABS: Absolute Lymphocytes (CBC) 3.4 K/uL (0.7-4.9); Absolute Monocytes 1.1 K/uL (0.1-1.3); Absolute Neutrophil 9.6 K/uL (1.8-8.0); Basophils % 0.2 % (0-1.3); Eosinophils % 0.1 % (0-4.4); Hematocrit 46.9 % (39.6-49.0); Hemoglobin 15.4 g/dL (13.6-17.9); MCH 29.3 pg (27.0-35.0); MCHC 32.8 g/dL (32.0-36.0); MCV 89.4 fL (80-100); MPV 8.2 fL (7.6-11.3); Monocytes % 7.8 % (3.3-12.3); Neutrophils % 67.9 % (41.7-73.7); Platelets 269 thou/uL (152-406); RBC Red Blood Cell Count 5.25 M/uL (4.33-5.43)
[2024-11-10] MEDS ORDERED: ONDANSETRON 4 MG/2 ML VIAL ONE (22:53)
[2024-11-10] MEDS ORDERED: NA CHLORIDE 0.9% 1,000 ML ONE (22:54)
[2024-11-10] MEDS ORDERED: LORazepam 2 MG/ML VIAL ONE (22:54)
[2024-11-10 22:56] LABS: PT Prothrombin Time 11.7 SECONDS (9.4-12.5); PTT, Activated Partial Thromb 47.7 SECONDS (24.3-36.9); Protime INR 1.05
[2024-11-10 23:02] LABS: Albumin 4.2 g/dL (3.4-5.0); Anion Gap 13.4 mEq/L (5.0-15.0); Bilirubin Direct 0.3 mg/dL (0-0.2); Bilirubin Indirect, Calculated 0.6 mg/dL (0.2-0.8); Bilirubin Total 0.9 mg/dL (0.2-1.0); Globulin 4.4 g/dL (2.3-3.5); Potassium 3.4 mEq/L (3.5-5.1); Protein, Total 8.6 g/dL (6.4-8.2)
[2024-11-10 23:17] LABS: Barbiturates NEGATIVE (NEGATIVE); Benzodiazepines NEGATIVE (NEGATIVE); Cocaine NEGATIVE (NEGATIVE); METHAMPHETAM POSITIVE (NEGATIVE); Methadone NEGATIVE (NEGATIVE); Opiates NEGATIVE (NEGATIVE); Phencyclidine NEGATIVE (NEGATIVE); THC Cannibis POSITIVE (NEGATIVE)
--- NOTE | 2024-11-11 00:52 | EDPHYS ---
Physician Documentation [facility] Name: Flip Villar Age: 34 yrs Sex: Male : 1990 Arrival Date: 11/10/2024 Time: 22:07 Bed 12 Private MD: ED Physician Charlie Acuna HPI: 11/11 01:20 This 34 yrs old Male presents to ER via EMS with complaints of Alcohol dr5 Withdrawal. 01:20 Onset: The symptoms/episode began/occurred 3 day(s) ago. Patient is a 34-year-old male dr5 with history of CHF, hypertension, ulcerative colitis coming in with signs of alcohol withdrawal. Patient reports he has not had anything to drink for the last 3 days. Patient reports feeling anxious. Patient denies chest pain, shortness of breath, abdominal pain, nausea, vomiting, diarrhea, or melena. Patient reports that he wants to get help to stop drinking.. Historical: - Allergies: 11/10 22:12 No Known Allergies; dd2 - PMHx: 22:12 Anxiety; CHF (2022); Hypertension; ulcerative colitis; dd2 - PSHx: 22:12 None; dd2 - Immunization history:: Adult Immunizations up to date, Client reports receiving the 2nd dose of the Covid vaccine, Client reports receiving the 1st dose of the Covid vaccine, Flu vaccine is not up to date. It has been more than one year since last vaccine. - Infectious Disease History:: Denies. - Social history:: Smoking status: Patient denies any tobacco usage or history of. ROS: 11/11 01:20 Constitutional: as per hpi dr5 Exam: 01:20 Constitutional: This is a well developed, well nourished patient who is awake, alert, dr5 and in no acute distress. Head/Face: Normocephalic, atraumatic. Eyes: Pupils equal round and reactive to light, extra-ocular motions intact. Lids and lashes normal. Conjunctiva and sclera are non-icteric and not injected. Cornea within normal limits. Periorbital areas with no swelling, redness, or edema. ENT: Nares patent. No nasal discharge, no septal abnormalities noted. Tympanic membranes are normal and external auditory canals are clear. Oropharynx with no redness, swelling, or masses, exudates, or evidence of obstruction, uvula midline. Mucous membranes moist. Chest/axilla: Normal chest wall appearance and motion. Nontender with no deformity. No lesions are appreciated. Cardiovascular: Regular rate and rhythm with a normal S1 and S2. Normal PMI, no JVD. No pulse deficits. Respiratory: Lungs have equal breath sounds bilaterally, clear to auscultation. No rales, rhonchi or wheezes noted. No increased work of breathing, no retractions or nasal flaring. Back: No spinal tenderness. No costovertebral tenderness. Full range of motion. Skin: Warm, dry with normal turgor. Normal color with no rashes, no lesions, and no evidence of cellulitis. Neuro: Awake and alert, GCS 15, oriented to person, place, time, and situation. Cranial nerves II-XII grossly intact. Motor strength 5/5 in all extremities. Sensory grossly intact. Cerebellar exam normal. Normal gait. Vital Signs: 11/10 22:08 BP 128 / 85; Pulse 117; Resp 18; Temp 97.8(O); Pulse Ox 99% on R/A; dd2 23:41 BP 136 / 85; Pulse 107; Resp 16; Pulse Ox 99% on R/A; dd2 11/11 00:12 BP 138 / 82; Pulse 98; Resp 17; Pulse Ox 99% ; dd2 01:07 BP 134 / 83; Pulse 93; Resp 16; Temp 98.3; Pulse Ox 99% on R/A; dd2 [place] Coma Score: 11/10 23:41 Eye Response: spontaneous(4). Motor Response: obeys commands(6). Verbal Response: dd2 oriented(5). Total: 15. MDM: 22:09 Medical Screening Exam initiated dr5 11/11 01:20 Differential diagnosis: viral Infection, bacterial infection, Call withdrawal, dr5 dehydration. Data reviewed: vital signs, nurses notes. I considered the following discharge prescriptions or medication management in the emergency department Medications were administered in the Emergency Department. See MAR. Historians other than the Patient: Spouse/Significant Other: Ex-. Care significantly affected by the following chronic conditions: Hypertension, Congestive Heart Failure, Ulcerative colitis. Care significantly affected by the following Social Determinants of Health: Poor access to healthcare and/or lack of insurance, Poor access to transportation, Problems related to employment. Counseling: I had a detailed discussion with the patient and/or guardian regarding the historical points, exam findings, and any diagnostic results supporting the discharge/admit diagnosis, the presence of at least one elevated blood pressure reading (>120/80) during this emergency department visit, lab results, radiology results, the need for outpatient follow up, for definitive care, a family practitioner, Rehab center, to return to the emergency department if symptoms worsen or persist or if there are any questions or concerns that arise at home. Medication response: Saline, Ativan. Response to treatment: the patient's symptoms have resolved after treatment. ED course: Patient reports he is feeling much better and no longer has any symptoms. Printed out results for patient to take to primary care doctor. Recommended ex- take him to rehab center this week. Resources given to patient. Will send patient home with Librium to help with alcohol withdrawal and Zofran for nausea to take as needed. All questions answered. Patient has ride home.. 11/10 22:09 Order name: Basic Metabolic Panel; Complete Time: 23:04 [facility] 11/10 22:09 Order name: CBC with Diff; Complete Time: 22:50 [facility] 11/10 22:09 Order name: ETOH Level; Complete Time: 23:18 [facility] 11/10 22:09 Order name: Hepatic Function; Complete Time: 23:04 [facility] 11/10 22:09 Order name: PT-INR; Complete Time: 22:59 [facility] 11/10 22:09 Order name: Ptt, Activated; Complete Time: 22:59 [facility] 11/10 22:09 Order name: Urine Drug Screen; Complete Time: 23:18 [facility] 11/10 22:09 Order name: EKG; Complete Time: 22:09 [facility] 11/10 22:09 Order name: EKG - Nurse/Tech; Complete Time: 22:51 [facility] 11/10 22:09 Order name: IV Saline Lock; Complete Time: 22:25 [facility] 11/10 22:09 Order name: Labs collected and sent; Complete Time: 22:39 dr5 EC/06 22:44 Rate is 120 beats/min. Rhythm is regular. QRS [place] is Normal. [place] interval is normal at dr5 160 msec. QRS interval is normal at 96 msec. QT interval is normal at 340 msec. Administered Medications: 23:00 Drug: NS 0.9% IV 1000 ml IV at 1000 ml once; to be given as a bolus over 60 minutes dd2 Route: IV; Rate: 1000 ml; Site: left antecubital; 23:15 Follow up: Response: No adverse reaction dd2 11/11 00:10 Follow up: IV Status: Completed infusion; IV Intake: 1000ml dd2 11/10 23:00 Drug: Ativan IVP 2 mg IVP once Route: IVP; Site: left antecubital; dd2 23:15 Follow up: Response: No adverse reaction dd2 23:00 Drug: Ondansetron IVP 4 mg IVP once; over 2 minutes Route: IVP; Site: left antecubital; dd2 23:15 Follow up: Response: No adverse reaction dd2 Disposition: 11/11 01:58 Co-signature as Attending Physician, Charlie Acuna MD I reviewed the patient's care rt provided by the Advanced Practice Provider and agree with the diagnosis and treatment plan. Disposition Summary: 11/11/24 00:51 Discharge Ordered Notes: Location: Home dr5 Condition: Stable dr5 Diagnosis - Alcohol abuse dr5 - Dehydration dr5 Followup: dr5 - With: Emergency Department - When: As needed - Reason: Worsening of condition Followup: dr5 - With: Private Physician - When: 1 - 2 days - Reason: Recheck today's complaints, Continuance of care, Re-evaluation by your physician Discharge Instructions: - Discharge Summary Sheet dr5 - Alcohol Abuse and Dependence Information, Adult dr5 Forms: - Medication Reconciliation Form dr5 - Patient Portal Instructions dr5 - Leadership Thank You Letter dr5 Prescriptions: - chlordiazepoxide HCl 25 mg Oral capsule - take 2 capsule ORAL route as directed for 4 days Day 1: Oral: 50 mg every 4 to dr5 6 hours. Day 2: Oral: 50 mg every 8 to 12 hours. Day 3: Oral: 50 mg every 12 to 24 hours. Day 4: Oral: 25 mg every 12 to 24 hours, then discontinue chlordiazepoxide; 20 capsule; Refills: 0, Product Selection Permitted - Zofran 4 mg Oral Tablet - take 1 tablet ORAL route every 12 hours As needed; 20 tablet; Refills: 0, dr5 Product Selection Permitted Signatures: Dispatcher [employer] Charlie Munoz MD MD rt MELCHOR GANDARA RN RN dd2 Harry Ryder, UMBRELLA REPAIRER-C UMBRELLA REPAIRER-Cdr5 Corrections: (The following items were deleted from the chart) 11/10 22:28 22:09 Suicide Screening ([place]) ordered. dr5 dd2
--- NOTE | 2024-11-11 00:52 | ER ---
Nurse's Notes [facility] Name: Flip Villar Age: 34 yrs Sex: Male : 1990 Arrival Date: 11/10/2024 Time: 22:07 Bed 12 Private MD: Diagnosis: Alcohol abuse;Dehydration Presentation: 11/10 22:08 Chief complaint: EMS states: TONED OUT FOR ALCOHOL WITHDRAWAL. PT REPORTS NO ALCOHOL IN dd2 3.5 DAYS, TYPICALLY DRINKS DAILY, LIQUOR OR 2 FOUR LOCOS FOR THE PAST 5 YEARS AND IS FEELING ANXIOUS. PT ALSO REPORTS R/L UPPER ABDOMINAL PAIN. HX OF ULCERATIVE COLITIS. Coronavirus screen: At this time, the client does not indicate any symptoms associated with coronavirus-19. Ebola Screen: No symptoms or risks identified at this time. Initial Sepsis Screen: Does the patient meet any 2 criteria? No. Patient's initial sepsis screen is negative. Does the patient have a suspected source of infection? No. Patient's initial sepsis screen is negative. Risk Assessment: Do you want to hurt yourself or someone else? Patient reports no desire to harm self or others. Onset of symptoms was November 10, 2024. 22:08 Method Of Arrival: EMS: [facility] dd2 22:08 Acuity: SOBIA 3 dd2 22:12 Care prior to arrival: IV initiated. 20 GA, in the left antecubital area, Glucose dd2 check: 117. Triage Assessment: 22:12 General: Appears in no apparent distress. uncomfortable, Behavior is cooperative, dd2 appropriate for age, anxious. Pain: Complains of pain in right upper quadrant and left upper quadrant Pain does not radiate. Pain currently is 6 out of 10 on a pain scale. EENT: No deficits noted. No signs and/or symptoms were reported regarding the EENT system. Neuro: No deficits noted. Level of Consciousness is awake, alert, obeys commands, Oriented to person, place, time, situation, Appropriate for age. Cardiovascular: Denies chest pain, Heart tones S1 S2 present Patient's skin is warm and dry. Respiratory: No deficits noted. Airway is patent Respiratory effort is even, unlabored, Respiratory pattern is regular, symmetrical. GI: Abdomen is round non-distended, Bowel sounds present X 4 quads. Abd is soft X 4 quads Abdomen is tender to palpation in right upper quadrant and left upper quadrant Reports upper abdominal pain, Patient currently denies nausea, vomiting. : No deficits noted. No signs and/or symptoms were reported regarding the genitourinary system. Derm: No deficits noted. No signs and/or symptoms reported regarding the dermatologic system. Skin is healthy with good turgor. Musculoskeletal: No deficits noted. No signs and/or symptoms reported regarding the musculoskeletal system. Circulation, motion, and sensation intact. Range of motion: intact in all extremities. Historical: - Allergies: 22:12 No Known Allergies; dd2 - PMHx: 22:12 Anxiety; CHF (2022); Hypertension; ulcerative colitis; dd2 - PSHx: 22:12 None; dd2 - Immunization history:: Adult Immunizations up to date, Client reports receiving the 2nd dose of the Covid vaccine, Client reports receiving the 1st dose of the Covid vaccine, Flu vaccine is not up to date. It has been more than one year since last vaccine. - Infectious Disease History:: Denies. - Social history:: Smoking status: Patient denies any tobacco usage or history of. Screenin:41 [facility] ED Fall Risk Assessment (Adult) History of falling in the last 3 months, dd2 including since admission No falls in past 3 months (0 pts) Confusion or Disorientation No (0 pts) Intoxicated or Sedated No (0 pts) Impaired Gait No (0 pts) Mobility Assist Device Used No (0 pt) Altered Elimination No (0 pt) Score/Fall Risk Level 0 - 2 = Low Risk Oriented to surroundings, Maintained a safe environment, Educated pt \T\ family on fall prevention, incl call for assistance when getting out of bed, Assessed \T\ reinforced patient's understanding of fall precautions, Hourly rounding (assess needs \T\ fall precautionary measures) done. Abuse screen: Denies threats or abuse. Nutritional screening: No deficits noted. Tuberculosis screening: No symptoms or risk factors identified. Assessment: 22:22 Reassessment: SEE TRIAGE ASSESSMENT FOR FULL ASSESSMENT. dd2 11/11 00:12 Reassessment: Patient and/or family updated on plan of care and expected duration. Pain dd2 level reassessed. Patient is alert, oriented x 3, equal unlabored respirations, skin warm/dry/pink. Patient states feeling better. Patient states symptoms have improved. Vital Signs: 11/10 22:08 BP 128 / 85; Pulse 117; Resp 18; Temp 97.8(O); Pulse Ox 99% on R/A; dd2 23:41 BP 136 / 85; Pulse 107; Resp 16; Pulse Ox 99% on R/A; dd2 11/11 00:12 BP 138 / 82; Pulse 98; Resp 17; Pulse Ox 99% ; dd2 01:07 BP 134 / 83; Pulse 93; Resp 16; Temp 98.3; Pulse Ox 99% on R/A; dd2 [place] Score: 11/10 23:41 Eye Response: spontaneous(4). Motor Response: obeys commands(6). Verbal Response: dd2 oriented(5). Total: 15. ED Course: 22:07 Patient arrived in ED. dd2 22:08 Harry Ryder FNP-C is [facility]. dr5 22:08 Charlie Acuna MD is Attending Physician. dr5 22:08 MELCHOR GANDARA RN is Primary Nurse. dd2 22:12 Triage completed. dd2 22:12 Arm band placed on right wrist. Patient placed in an exam room, on a stretcher, on dd2 pulse oximetry. 22:25 Maintain EMS IV. Dressing intact. Good blood return noted. Site clean \T\ dry. Gauge \T\ dd 2 site: 20G LAC. Flushed with 10 mL NS. 22:39 Basic Metabolic Panel Sent. lg3 22:39 CBC with Diff Sent. lg3 22:39 ETOH Level Sent. lg3 22:39 Hepatic Function Sent. lg3 22:39 PT-INR Sent. lg3 22:39 Ptt, Activated Sent. lg3 22:39 Urine Drug Screen Sent. lg3 22:51 No provider procedures requiring assistance completed. Initial lab(s) drawn, by ED dd2 staff, sent to lab. EKG done, by ED staff, reviewed by Harry MCGILL. 23:41 Patient has correct armband on for positive identification. Bed in low position. Call dd2 light in reach. Side rails up X2. Client placed on continuous cardiac and pulse oximetry monitoring. NIBP monitoring applied. Door closed. Noise minimized. Warm blanket given. Pillow given. Verbal reassurance given. 11/11 01:07 Provided Education on: D/C EDUCATION. dd2 01:07 IV discontinued, intact, bleeding controlled, No redness/swelling at site. Pressure dd2 dressing applied. Administered Medications: 11/10 23:00 Drug: NS 0.9% IV 1000 ml IV at 1000 ml once; to be given as a bolus over 60 minutes dd2 Route: IV; Rate: 1000 ml; Site: left antecubital; 23:15 Follow up: Response: No adverse reaction dd2 11/11 00:10 Follow up: IV Status: Completed infusion; IV Intake: 1000ml dd2 11/10 23:00 Drug: Ativan IVP 2 mg IVP once Route: IVP; Site: left antecubital; dd2 23:15 Follow up: Response: No adverse reaction dd2 23:00 Drug: Ondansetron IVP 4 mg IVP once; over 2 minutes Route: IVP; Site: left antecubital; dd2 23:15 Follow up: Response: No adverse reaction dd2 Medication: 23:41 VIS not applicable for this client. dd2 Intake: 11/11 00:10 IV: 1000ml; Total: 1000ml. dd2 Outcome: 00:51 Discharge ordered by . andry 01:07 Discharged to home ambulatory, dd2 01:07 Condition: improved 01:07 Discharge instructions given to patient, Instructed on discharge instructions, follow up and referral plans. medication usage, Demonstrated understanding of instructions, follow-up care, medications, Prescriptions given X 2, 01:09 Patient left the ED. dd2 Signatures: Kavya Larios RN RN lg3 MELCHOR GANDARA RN RN dd2 Harry Ryder, CHIP MIXING MACHINE OPERATOR-C CHIP MIXING MACHINE OPERATOR-[id number] Corrections: (The following items were deleted from the chart) 11/10 22:20 22:08 Chief complaint: EMS states: TONED OUT FOR ALCOHOL WITHDRAWAL. PT REPORTS NO dd2 ALCOHOL IN 3.5 DAYS, TYPICALLY DRINKS DAILY FOR THE PAST 5 YEARS AND IS FEELING ANXIOUS. PT ALSO REPORTS R/L UPPER ABDOMINAL PAIN. HX OF ULCERATIVE COLITIS dd2 22:22 22:08 BP 128 / 85; Pulse 117bpm; Resp 18bpm; Pulse Ox 99% RA; Temp 97.8F Oral; dd2 dd2
[2024-11-11 01:16] VITALS: O2SAT 99
[2024-11-11 01:21] VITALS: BP 134/83; TEMP 98.3
--- NOTE | 2024-11-17 11:06 | EKG ---
Test Date: 2024-11-10 Test Time: 22:44:55 Front End Developer Javascript Html Css: ROB MEASUREMENT RESULTS: Intervals: Rate: 120 FL: 160 QRSD: 96 QT: 340 QTc: 480 [place]: P: 50 FL: 160 QRS: -18 T: 155 INTERPRETIVE STATEMENTS: Sinus tachycardia Possible Left atrial enlargement Left ventricular hypertrophy ST & T wave abnormality, consider lateral ischemia Abnormal ECG Compared to ECG 06/14/2024 21:49:49 ST (T wave) deviation now present T-wave abnormality no longer present Possible ischemia still present Electronically Signed On 11-17-24 10:58:35 FLIGHT INSTRUCTOR by Jose Guadalupe Woody
== END 2024-11-11 01:09 | disposition home or self-care (01) ==
LOC: ER 22:07
DX: F10.10 Alcohol abuse, uncomplicated (principal); E86.0 Dehydration; I10 Essential (primary) hypertension; I50.9 Heart failure, unspecified
CPT/HCPCS: 96361; 93005; 85025; 80048; 36415; 85610; 80076; 85730; 80307; 96375; 96374; 99284; 82077; J2405; J7030